=== PATIENT | female | born 1950 | race Caucasian/White ===

== ENCOUNTER 2020-03-06 16:01 | Outpatient (CLI) | payer MEDICARE, OTHER, SELFPAY ==
--- NOTE | 2020-03-06 16:07 | XR_ITS ---
WS: [id number] XR chest 2V* [id number] REASON FOR EXAM: COUGH, DYSPNEA, ANEMIA, FATIGUE FINDINGS: A prominent hiatal hernia is noted. The heart is not enlarged. There is elevation of the right hemidiaphragm similar to previous exam April 22, 2014. There is a granuloma in the mid left chest this is well calcified. There is no pneumonia, pleural effusion, pulmonary edema. XR/XR chest 2V* [id number] IMPRESSION: Prominent hiatal hernia Eventration of the right hemidiaphragm Benign granuloma left mid chest.
== END 2020-03-06 16:02 | disposition home or self-care (01) ==
LOC: RAD 16:03
PROVIDERS: PCP Family Medicine; Visit Provider Family Medicine
DX: D64.9 Anemia, unspecified (principal); R05 Cough; R06.02 Shortness of breath; R53.83 Other fatigue; K44.9 Diaphragmatic hernia without obstruction or gangrene; L92.8 Other granulomatous disorders of the skin and subcutaneous tissue
CPT/HCPCS: 71046

== ENCOUNTER 2020-04-17 10:41 | Outpatient (CLI) | payer MEDICARE, OTHER, SELFPAY ==
--- NOTE | 2020-04-17 10:48 | CT_ITS ---
WS: [id number] CT angio chest PE protcl [id number] REASON FOR EXAM: COUGH/DYSPNEA/WHEEZING TECHNIQUE: Coronal and sagittal 2-D and MIP reformations. IV CONTRAST ADMINISTERED: Omnipaque 350, 95 mL TOTAL EXAM DLP: 565.[address] scans at [facility] use at least one of these dose optimization techniques: automat ed exposure control; mA and/or kV adjustment per patient size (includes targeted exams where dose is matched to clinical indication); or iterative reconstruction. FINDINGS: The pulmonary vessels fill readily after the bolus injection of contrast. There was no definite filling defect to suggest thromboembolic changes. The decreased vascularity is seen in evidence of emphysema this changes are noted. A large hiatal hernia is seen measures 10.94 cm. A calcified granuloma measured 1 6 7 cm is well calcified. There is calcification of the azygos lymph nodes. The aorta was normal as well as the heart chambers. There is no dissection seen of the aorta. The abdomen showed normal appearance of the liver. The adrenal glands were normal. Degenerate changes throughout the thoracic spine are seen. CT/CT angio chest PE protcl [id number] IMPRESSION: Chronic obstructive pulmonary disease. Low probability of pulmonary embolus. Large hiatal hernia. Calcified granuloma left lower lung No evidence of dissection of the aorta.
[2020-04-17 11:48] LABS: Blood Urea Nitrogen 15 mg/dL (8-23)
[2020-04-17] MEDS: iohexol 350 mg/mL 100 mL Btl IV (12:17)
== END 2020-04-17 10:42 | disposition home or self-care (01) ==
LOC: RAD 10:45
PROVIDERS: PCP Family Medicine; Visit Provider Nurse Practitioner Family
DX: R05 Cough (principal); R06.02 Shortness of breath; R06.2 Wheezing; J44.9 Chronic obstructive pulmonary disease, unspecified; K44.9 Diaphragmatic hernia without obstruction or gangrene; J84.10 Pulmonary fibrosis, unspecified
CPT/HCPCS: 36415; 71275; 82565; 84520

== ENCOUNTER 2020-05-04 10:22 | Emergency (ER) | payer MEDICARE, OTHER, SELFPAY ==
[2020-05-04] VITALS (9 sets, daily range): BP systolic 140–153; BP diastolic 84–107; PULSE 65–101; RESP 16–20; TEMP 36.6; O2SAT 94–98; BMI 32.1
--- NOTE | 2020-05-04 10:38 | ED_ITS ---
HPI - Chest Pain General: Chief Complaint: Chest Pain Stated Complaint: CP Time Seen by Provider: 05/04/20 10:33 History of Present Illness: HPI narrative: 70-year-old female comes in complaining of fatigue and dyspnea. This is actually been going on for the last 3 to [address] Tian for it she [place] [facility] [facility] [place] a [place]oma which was not new she also had a large hiatal hernia there is no pulmonary emboli. She had upper respiratory infections in December x2 has been on prednisone antibiotics not recently had a fever at all. she not really had any chest pain but describes a heaviness. She has not had any cardiac work-up. she does have some of the heaviness seeming to radiating to her back. she denies any GI blood loss she denies any pain radiating down into the groin her biggest problem today is she generally feels suddenly very very fatigued. She has continued to have a work-up with Dr. Tian so far they have not had any significant findings to explain her symptoms. MD complaint: chest discomfort Pertinent past history: other (Persistent shortness of breath and fatigue) Onset (ago): month(s) Timing of current episode: episodic and still present Onset: during exertion Pain location: left chest Pain radiation: back Severity: mild Quality: heaviness Associated symptoms: Reports dyspnea; Deny abdominal pain, fever(s), nausea or vomiting Treatment prior to arrival: none Review of Systems Const: Denies: fever(s), chills, body aches, change in appetite, fatigue or malaise ENMT: Denies: throat pain, ear or mastoid pain, nasal discharge or nasal congestion Card: Denies: chest pain, edema, dyspnea on exertion or orthopnea Resp: Reports: dyspnea and wheezing GI: Denies: abdominal pain, nausea, vomiting, hematemesis, coffee ground emesis, diarrhea, constipation, bloating, hematochezia or melena : Denies: flank pain, difficulty voiding, dysuria, urinary frequency or urinary urgency Skin/Breast: Denies: rash or pruritus PFSH ED PFSH: Social History Smoking and tobacco status: never smoked Alcohol intake: never Physical Exam Const: COMMON NORMALS: no acute distress GENERAL APPEARANCE: cooperative and comfortable ORIENTATION/CONSCIOUSNESS: Yes awake, Yes oriented to person, Yes oriented to place and Yes oriented to time HENMT: COMMON NORMALS: normocephalic, atraumatic, hearing grossly normal bilaterally, external ears normal, EAC's normal, TM's normal bilaterally, Normal nasal mucous membranes and turbinates present, moist oral mucous membranes and oropharynx normal HEAD & SCALP: normocephalic and atraumatic NOSE: Normal nasal mucous membranes and turbinates present EXTERNAL EAR: Yes external ears normal EXTERNAL AUDITORY CANAL: EAC's normal TYMPANIC MEMBRANE: TM's normal bilaterally Eye: COMMON NORMALS: Equal, round and reactive pupils present, EOMs intact bilaterally, conjunctivae normal and no scleral icterus CONJUNCTIVA: Yes conjunctivae normal PUPIL: Yes Equal, round and reactive pupils present Neck/C-Spine: COMMON NORMALS: full ROM, no lymphadenopathy, supple and no JVD Lymph: LYMPHATIC: no lymphadenopathy noted and no lymphedema noted Resp: COMMON NORMALS: normal respiratory effort, No retractions and No use of accessory muscles AUSCULTATION: wheezes expiratory wheezes Cardio: COMMON NORMALS: no JVD, regular rate, regular rhythm and No murmurs present (Cardio) RATE: regular rate RHYTHM: regular rhythm GI: COMMON NORMALS: Soft to palpation and No hepatosplenomegaly present AUSCULTATION: Yes normoactive bowel sounds PALPATION: Yes Soft to palpation, No Tenderness to palpation present (GI), No Guarding due to palpation present (GI) and Yes No hepatosplenomegaly present Extremity: COMMON NORMALS: normal to inspection, capillary refill normal, no clubbing, cyanosis or edema, no calf tenderness and no pedal edema Neuro: SENSORIUM/ORIENTATION: Yes oriented to person, Yes oriented to place and Yes oriented to time Skin: COMMON NORMALS: no rashes or lesions noted GENERAL SKIN EXAM: no rashes or lesions noted Course Vital Signs: Vital signs: Vital Signs Temperature 97.9 F 05/04/20 10:34 Pulse Rate 71 05/04/20 14:18 Respiratory Rate 16 05/04/20 14:18 Blood Pressure 140/84 05/04/20 14:18 Pulse Oximetry 95 05/04/20 14:18 MDM - Chest Pain MDM Narrative: Medical decision making narrative: Discussed findings with patient. She does have a large hiatal hernia she does look like she has a left lower lobe pneumonia based on her new symptoms will start on Levaquin. I encouraged her to follow-up with Dr. Tian. Another option would be to see Dr. Blandon at some time and see if he can add anything to evaluating this for her. She is doing well at this time and wishes to go home. Lab Data: Labs: Lab Results 05/04/20 05/04/20 05/04/20 Range/Units 11:09 11:32 11:32 WBC 6.5 (4.0-10.0) 10^3/ uL RBC 4.32 (4.1-5.3) 10^6/u L Hgb 13.5 (11.5-15.3) g/dL Hct 42.1 (37.0-47.0) % MCV 97.5 (81-99) fL MCH 31.3 (28.0-34.0) pg MCHC 32.1 (30.0-36.0) g/dL RDW 13.3 (12.1-15.1) % Plt Count 442 H (130-400) 10^3/c mm MPV 9.3 (7.4-10.4) fL Neut % (Auto) 61.4 % Lymph % (Auto) 23.9 % Campbell % (Auto) 9.0 % Eos % (Auto) 4.0 % Baso % (Auto) 1.2 % Neut # (Auto) 4.0 (1.8-7.7) 10^3/u L Lymph # (Auto) 1.6 (0.8-4.8) 10^3/u L Campbell # (Auto) 0.6 (0.2-0.9) 10^3/u L Eos # (Auto) 0.3 (0.0-0.8) 10^3/u L Baso # (Auto) 0.1 (0.0-0.1) 10^3/u L Nucleated RBC % (a uto) 0 % Nucleated RBCs # 0.0 /100WBC Sodium 140 (136-145) mmol/L Potassium 4.5 (3.5-5.1) mmol/L Chloride 107 (98-107) mmol/L Carbon Dioxide 22 (22-29) mmol/L Anion Gap 15.5 (5-19) BUN 16 (8-23) mg/dL Creatinine 0.7 (0.5-0.9) mg/dL Glucose 100 (65-115) mg/dL Calculated Osmolal ity 286 (285-295) mOsm/k g Calcium 9.9 (8.5-10.5) mg/dL Total Bilirubin 0.4 (0.15-1.2) mg/dL AST 25 (0-32) U/L ALT 22 (0-33) U/L Alkaline Phosphata se 80 (35-105) IU/L Troponin T Baselin e 7 (0-10) ng/L Troponin T 120 Min [place] (0-10) ng/L Delta Troponin T (0-10) ABS# Total Protein 6.5 L (6.6-8.7) g/dL Albumin 4.1 (3.5-5.2) g/dL Globulin 2.4 (1.3-4.6) g/dL 05/04/20 Range/Units 13:10 WBC (4.0-10.0) 10^3/ uL RBC (4.1-5.3) 10^6/u L Hgb (11.5-15.3) g/dL Hct (37.0-47.0) % MCV (81-99) fL MCH (28.0-34.0) pg MCHC (30.0-36.0) g/dL RDW (12.1-15.1) % Plt Count (130-400) 10^3/c mm MPV (7.4-10.4) fL Neut % (Auto) % Lymph % (Auto) % Campbell % (Auto) % Eos % (Auto) % Baso % (Auto) % Neut # (Auto) (1.8-7.7) 10^3/u L Lymph # (Auto) (0.8-4.8) 10^3/u L Campbell # (Auto) (0.2-0.9) 10^3/u L Eos # (Auto) (0.0-0.8) 10^3/u L Baso # (Auto) (0.0-0.1) 10^3/u L Nucleated RBC % (a uto) % Nucleated RBCs # /100WBC Sodium (136-145) mmol/L Potassium (3.5-5.1) mmol/L Chloride (98-107) mmol/L Carbon Dioxide (22-29) mmol/L Anion Gap (5-19) BUN (8-23) mg/dL Creatinine (0.5-0.9) mg/dL Glucose (65-115) mg/dL Calculated Osmolal ity (285-295) mOsm/k g Calcium (8.5-10.5) mg/dL Total Bilirubin (0.15-1.2) mg/dL AST (0-32) U/L ALT (0-33) U/L Alkaline Phosphata se (35-105) IU/L Troponin T Baselin e (0-10) ng/L Troponin T 120 Min [place] 7.70 (0-10) ng/L Delta Troponin T 0.70 (0-10) ABS# Total Protein (6.6-8.7) g/dL Albumin (3.5-5.2) g/dL Globulin (1.3-4.6) g/dL Discharge Plan Discharge Patient Disposition: Home, Self-Care Clinical Impression: Pneumonia Condition: Stable Prescriptions: New Levaquin 750 mg tablet 750 mg PO DAILY 7 Days Qty: 7 RF: 0 No Action lisinopril 20 mg tablet 40 mg PO DAILY RF: 0 omeprazole 40 mg capsule,delayed release(DR/EC) 40 mg PO DAILY RF: 0 amlodipine 10 mg tablet 10 mg PO DAILY RF: 0 Anoro Ellipta 62.5-25 mcg/actuation Blister With Device 1 inh INHALATION DAILY RF: 0 Discharge Orders: Discharge Order (Routine); Ordered 05/04/20 Ordered By: Shivam Boss Referrals: Alfonzo Hays DO [Primary Care Provider] - Discharge Diet: Advance as tolerated Discharge Activity: Resume usual activity Activity Restrictions/Additional Instructions: Follow-up with your primary care doctor in the next week. Discharge Date/Time: 05/04/20 14:46 Coding Level of Care Code ED Mending Carrier for Chg Fwd Exam Comprehensive
--- NOTE | 2020-05-04 10:39 | XRR_ITS ---
PROCEDURE INFORMATION: Exam: XR Chest, 1 View Exam date and time: 05/04/2020 10:41 AM Age: 70 years old Clinical indication: Chest pain TECHNIQUE: Imaging protocol: XR of the chest Views: 1 view. COMPARISON: CR XR chest 2V* [id number] 03/06/2020 4:24 PM FINDINGS: Lungs: Poor inspiration. Decreased lung volumes. Nonspecific left basilar airspace disease. This could be due to pneumonia or atelectasis. Left mid lung zone calcified granuloma. Pleural space: No pleural effusion or pneumothorax. Heart/Mediastinum: Moderate to large size hiatal hernia. The cardiac silhouette is not enlarged. Diaphragm: The right hemidiaphragm is elevated, present before. Bones/joints: No acute osseous abnormality. XR/XR chest 1V portable [id number] IMPRESSION: Left basilar pneumonia versus atelectasis.
[2020-05-04 11:18] LABS: Basophils # 0.1 10^3/uL (0.0-0.1); Basophils % 1.2 %; Eosinophils # 0.3 10^3/uL (0.0-0.8); Hematocrit 42.1 % (37.0-47.0); Hemoglobin 13.5 g/dL (11.5-15.3); Lymphocytes # 1.6 10^3/uL (0.8-4.8); Lymphocytes % 23.9 %; Mean Corpuscular HGB Conc 32.1 g/dL (30.0-36.0); Mean Corpuscular Hemoglobin 31.3 pg (28.0-34.0); Mean Corpuscular Volume 97.5 fL (81-99); Mean Platelet Volume 9.3 fL (7.4-10.4); Monocytes # 0.6 10^3/uL (0.2-0.9); Neutrophils % 61.4 %; Nucleated Red Blood Cells % 0 %; Platelet Count 442 10^3/cmm (130-400); Red Blood Count 4.32 10^6/uL (4.1-5.3); Red Cell Distribution Width 13.3 % (12.1-15.1); White Blood Count 6.5 10^3/uL (4.0-10.0)
[2020-05-04 11:59] LABS: Alanine Aminotransferase 22 U/L (0-33); Albumin Level 4.1 g/dL (3.5-5.2); Alkaline Phosphatase 80 IU/L (35-105); Anion Gap 15.5 (5-19); Aspartate Amino Transferase 25 U/L (0-32); Blood Urea Nitrogen 16 mg/dL (8-23); Calcium 9.9 mg/dL (8.5-10.5); Carbon Dioxide 22 mmol/L (22-29); Chloride 107 mmol/L (98-107); Globulin 2.4 g/dL (1.3-4.6); Glucose 100 mg/dL (65-115); Osmolality Calculated 286 mOsm/kg (285-295); Potassium 4.5 mmol/L (3.5-5.1); Sodium 140 mmol/L (136-145); Total Bilirubin 0.4 mg/dL (0.15-1.2); Total Protein 6.5 g/dL (6.6-8.7)
[2020-05-04 12:04] LABS: Troponin(5th) Baseline 7 ng/L (0-10)
--- NOTE | 2020-05-04 12:05 | PC.NURSE ---
XR performed at bedside
--- NOTE | 2020-05-04 12:39 | ECG_ITS ---
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 Measurements Intervals [place] Rate: 65 P: 36 SC: 158 QRS: -9 QRSD: 88 T: 35 QT: 393 QTc: 409 Interpretive Statements SINUS RHYTHM WITH SINUS ARRHYTHMIA POSSIBLE RIGHT VENTRICULAR CONDUCTION DELAY [RSR (QR) IN V1/V2] NONSPECIFIC T-WAVE ABNORMALITY INTERPRETATION BASED ON A DEFAULT AGE OF 40 YEARS Compared to ECG 05/04/2020 10:46:06 T-wave abnormality now present Myocardial infarct finding no longer present Electronically Signed On 05-04-2020 14:10:18 CDT by Chago Koehler M.D. [id number]
--- NOTE | 2020-05-04 12:44 | PC.NURSE ---
Pt provided with water per request, denied need for blanket. RT at bedside to do 2nd EKG. Call light in reach.
--- NOTE | 2020-05-04 13:11 | PC.NURSE ---
2nd troponin drawn by lab
--- NOTE | 2020-05-04 13:45 | PC.NURSE ---
Pt provided with warm blanket
--- NOTE | 2020-05-04 14:41 | PC.NURSE ---
Pt ambulated to and from the bathroom with no assist and no noted dyspnea
--- NOTE | 2020-05-04 16:39 | ECG_ITS ---
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 Measurements Intervals [place] Rate: 77 P: 16 WI: 145 QRS: -18 QRSD: 84 T: 52 QT: 382 QTc: 433 Interpretive Statements SINUS RHYTHM SEPTAL MYOCARDIAL INFARCTION [40+ ms Q WAVE IN V1/V2], OF INDETERMINATE AGE INFERIOR MYOCARDIAL INFARCTION [40+ ms Q WAVE AND/OR ST/T ABNORMALITY IN II/aVF], PROBABLY OLD No previous ECG available for comparison Electronically Signed On 05-04-2020 14:09:45 CDT by Chago Koehler M.D. [email or web address]
== END 2020-05-04 14:46 | disposition home or self-care (01) ==
PROVIDERS: Emergency Provider Family Medicine; PCP Family Medicine
DX: J18.9 Pneumonia, unspecified organism (principal)
CPT/HCPCS: 12345; 36415; 71045; 80053; 84484; 85025; 93005; 99283

== ENCOUNTER → 2020-06-07 10:53 | Outpatient (BNVA) | payer MEDICARE, OTHER, SELFPAY | PROVIDERS: PCP Family Medicine; Visit Provider Internal Medicine | DX: R05 Cough (principal) | CPT/HCPCS: 87635 ==

== ENCOUNTER 2020-06-12 09:40 | Outpatient (CLI) | payer MEDICARE, OTHER, SELFPAY ==
--- NOTE | 2020-06-12 09:30 | USCV_ITS ---
Jane Zheng Age: 70 Gender: F : 1950 Exam Date: 06/12/2020 10:04 Ordering Phys: Isauro Viera MD Technologist: Damon Mcwilliams Exam Location: [facility] – [place] Indication: SOB BP: 125 / 78 HR: 70 Rhythm: Sinus Technical Quality: Fair MEASUREMENTS (Male / Female) Normal Values 2D ECHO LV Diastolic Diameter PLAX 4.1 cm 4.2 - 5.9 / 3.9 - 5.3 cm LV Systolic Diameter PLAX 2.5 cm IVS Diastolic Thickness 1.6 cm 0.6 - 1.0 / 0.6 - 0.9 cm IVS Systolic Thickness 1.6 cm LVPW Diastolic Thickness 1.3 cm 0.6 - 1.0 / 0.6 - 0.9 cm LVPW Systolic Thickness 1.5 cm LVOT Diameter 2.0 cm LV Ejection Fraction 2D Teich 69.4 % LV Ejection Fraction MOD 2C 45.8 % LV Ejection Fraction 2C AL 46.3 % LA Diameter 4.2 cm LA Width 3.9 cm LA Height 5.9 cm RA Width 3.8 cm RA Height 3.8 cm Aorta at Sinotubular Diameter 1.1 cm M-MODE LV Diastolic Diameter MM 4.6 cm 4.2 - 5.9 / 3.9 - 5.3 cm LV Systolic Diameter MM 2.9 cm LV Ejection Fraction MM Teich 66.5 % IVS Diastolic Thickness MM 0.9 cm 0.6 - 1.0 / 0.6 - 0.9 cm IVS Systolic Thickness MM 1.5 cm LVPW Diastolic Thickness MM 1.3 cm 0.6 - 1.0 / 0.6 - 0.9 cm LVPW Systolic Thickness MM 1.7 cm RV Diastolic Diameter MM 2.8 cm Aortic Annulus Diameter 3.4 cm LA Ao Ratio MM 1.2 MV E Point Septal Separation 1.3 cm DOPPLER AV Peak Velocity 126.0 cm/s LVOT Peak Velocity 95.0 cm/s AV Area Cont Eq vti 3.1 cm squared AV Area Cont Eq pk 2.5 cm squared MV Area PHT 5.0 cm squared Mitral E to A Ratio 0.6 MV E' Velocity 8.0 cm/s Mitral E to MV E' Ratio 8.9 Mitral E to LV E' Lateral Ratio 7.1 Mitral E to LV E' Septal Ratio 12.3 TR Peak Velocity 140.0 cm/s TR Peak Gradient 7.8 mmHg TV Peak E Velocity 58.0 cm/s Right Atrial Pressure 3.0 mmHg Pulmonary Artery Systolic Pressu 10.8 mmHg FINDINGS Left Ventricle Normal left ventricular size, systolic function and wall thickness, with no regional wall motion abnormalities. Left ventricular ejection fraction is estimated at 55 %. Grade I diastolic dysfunction (abnormal relaxation filling pattern), normal to mildly elevated filling pressures. Right Ventricle Normal right ventricular size and systolic function. Right ventricular systolic pressure 10.8 mmHg. Right Atrium Normal right atrial size. Left Atrium Moderately increased left atrial size. Mitral Valve Mildly thickened mitral valve. No mitral valve stenosis. Trace mitral valve regurgitation. Aortic Valve Aortic valve not well visualized. No aortic valve stenosis. Trace aortic valve regurgitation. Tricuspid Valve Tricuspid valve not well visualized. Structurally normal tricuspid valve. Pulmonic Valve Pulmonic valve not well visualized. Pericardium No pericardial effusion. Aorta Normal size aortic root and proximal ascending aorta. CONCLUSIONS 1. Normal left ventricular size, systolic function and wall thickness, with no regional wall motion abnormalities. Left ventricular ejection fraction is estimated at 55 %. Grade I diastolic dysfunction (abnormal relaxation filling pattern), normal to mildly elevated filling pressures. 2. Normal right ventricular size and systolic function. 3. Moderately increased left atrial size. 4. Trace aortic valve regurgitation. 5. No prior similar studies to compare. Brittni Young MD (Electronically Signed) Final Date: 14 June 2020 14:32 S
--- NOTE | 2020-06-12 10:09 | PFTS_ITS ---
Date of Study:07/24/20 Date of Dictation: MECHANICS: Forced vital capacity (FVC) is normal. Forced expiratory volume in one second (FEV1) is normal. FEV1/FVC is normal. FLOW VOLUME LOOP: Mild scooping. LUNG VOLUMES: Total lung capacity (TLC) is normal. Residual volume (RV) is normal. DIFFUSING CAPACITY FOR CARBON MONOXIDE: Moderately reduced. INTERPRETATION: The prebronchodilator spirometry is consistent with mild restriction. The postbronchodilator spirometry normalizes with a significant postbronchodilator response in FEV1. Lung volumes are normal. Gas exchange (DLCO) is moderately reduced. MTDD
== END 2020-06-12 09:41 | disposition home or self-care (01) ==
LOC: RAD 09:44
PROVIDERS: PCP Family Medicine; Visit Provider Internal Medicine Pulmonary Disease
DX: R06.02 Shortness of breath (principal); K21.9 Gastro-esophageal reflux disease without esophagitis; R05 Cough; I35.1 Nonrheumatic aortic (valve) insufficiency
CPT/HCPCS: 93306; 94060; 94726; 94729; J7611

== ENCOUNTER 2020-08-01 15:42 | Outpatient (CLI) | payer MEDICARE, OTHER, SELFPAY ==
[2020-08-01 16:21] LABS: Basophils # 0.1 10^3/uL (0.0-0.1); Basophils % 0.8 %; Eosinophils # 0.2 10^3/uL (0.0-0.8); Eosinophils % 1.7 %; Hematocrit 40.6 % (37.0-47.0); Hemoglobin 12.8 g/dL (11.5-15.3); Lymphocytes # 2.1 10^3/uL (0.8-4.8); Lymphocytes % 23.4 %; Mean Corpuscular HGB Conc 31.5 g/dL (30.0-36.0); Mean Corpuscular Volume 95.1 fL (81-99); Mean Platelet Volume 9.5 fL (7.4-10.4); Monocytes # 0.8 10^3/uL (0.2-0.9); Monocytes % 9.5 %; Neutrophils % 64.3 %; Nucleated Red Blood Cells % 0 %; Platelet Count 433 10^3/cmm (130-400); Red Blood Count 4.27 10^6/uL (4.1-5.3); White Blood Count 8.9 10^3/uL (4.0-10.0)
[2020-08-05 18:51] LABS: Alternaria Alternata (M6) Ige <0.10 kU/L; Alternaria Class 0; Bermuda Class 0; Bermuda Grass (G2) Ige <0.10 kU/L; Cat Dander (E1) Ige <0.10 kU/L; Cat Dander Class 0; Common Ragweed (Short) (W1) Ig <0.10 kU/L; D. Farinae Class 0; Dermatophagoides Class 0; Dermatophagoides Farinae (D2) <0.10 kU/L; Dermatophagoides Pteronyssinus <0.10 kU/L; Dog Dander (E5) Ige <0.10 kU/L; Dog Dander Class 0; Elm (T8) Ige <0.10 kU/L; Elm Class 0; English Plantain (W9) Ige <0.10 kU/L; English Plantain Class 0; House Dust (Greer) (H1) Ige <0.10 kU/L; House Dust (Hollister- Stier) <0.10 kU/L; House Dust Class 0; Immunoglobulin E 61 kU/L (<OR=114); Immunoglobulin E 65 kU/L (<OR=114); Johnson Grass (G10) Ige <0.10 kU/L; Johnson Grass Cl 0; June Grass Class 0; June Grass(Kentucky Blue) (G8) <0.10 kU/L; Lamb'S Quarters (Goose Foot) <0.10 kU/L; Lamb'S Quarters Class 0; Maple (Box Elder) (T1) Ige <0.10 kU/L; Maple Class 0; Meadow Fescue (G4) Ige <0.10 kU/L; Meadow Fescue Class 0; Mucor Racemosus Class 0; Oak (T7) Ige <0.10 kU/L; Oak Class 0; Orchard Grass (Cocksfoot) (G3) <0.10 kU/L; Penicillium Class 0; Penicillium Notatum (M1) Ige <0.10 kU/L; Perennial Rye Grass (G5) Ige <0.10 kU/L; Perennial Rye Grass Class 0; Ragweeed Class 0; Rough Marsh Elder (W16) Ige <0.10 kU/L; Rough Marsh Elder Class 0; Sweet Vernal Class 0; Sweet Vernal Grass (G1) Ige <0.10 kU/L; Timothy Grass (G6) Ige <0.10 kU/L; Timothy Grass Class 0
[2020-08-05 20:52] LABS: Aspergillus Fumigatus, Igg Ab, 18.4 mg/L (<=102)
== END 2020-08-01 15:43 | disposition home or self-care (01) ==
PROVIDERS: PCP Family Medicine; Visit Provider Internal Medicine Pulmonary Disease
DX: R06.02 Shortness of breath (principal)
CPT/HCPCS: 82785; 85025; 86003

== ENCOUNTER 2020-12-10 11:14 | Outpatient (CLI) | payer MEDICARE, OTHER, SELFPAY ==
--- NOTE | 2020-12-10 11:18 | MM_ITS ---
WS: [id number] BILATERAL DIGITAL SCREENING MAMMOGRAPHY WITH CAD CLINICAL INFORMATION: SCREENING HISTORY: Screening mammogram. No current complaints. COMPARISON: TECHNIQUE: Bilateral CC and MLO views. FINDINGS: Scattered fibroglandular densities bilaterally. No suspicious focal mass, asymmetry, calcifications, or architectural distortion. No evidence of malignancy. A few stable intramammary lymph nodes. MM/[place] [id number] IMPRESSION: BI-RADS: 2-Benign FOLLOW UP: 1 Year Follow-up Recommend return to annual screening mammography.
== END 2020-12-10 11:15 | disposition home or self-care (01) ==
LOC: RADSHAW 11:17
PROVIDERS: PCP Family Medicine; Visit Provider Family Medicine
DX: Z12.31 Encounter for screening mammogram for malignant neoplasm of breast (principal)
CPT/HCPCS: 77067

== ENCOUNTER → 2020-12-25 14:37 | Outpatient (BNVA) | payer MEDICARE, OTHER, SELFPAY | PROVIDERS: PCP Family Medicine; Visit Provider Obstetrics & Gynecology | DX: N90.7 Vulvar cyst (principal) | CPT/HCPCS: 88305 ==

== ENCOUNTER 2021-03-19 14:45 | Outpatient (CLI) | payer MEDICARE, OTHER, SELFPAY ==
--- NOTE | 2021-03-19 14:52 | XR_ITS ---
WS: [id number] Chest 2 views, 03/19/2021 Clinical Data: COPD Comparison: Portable chest, 05/04/2020. Findings: No nodules, masses or effusions are seen. The heart is normal. The pulmonary vascularity is not increased. No pneumonia or pneumothorax is seen. The right diaphragm is elevated. There is a hia daniel hernia behind the heart. The aortic arch and descending aorta are tortuous. XR/XR chest 2V* [id number] Impression: Atherosclerosis and hiatal hernia.
== END 2021-03-19 14:46 | disposition home or self-care (01) ==
LOC: RAD 14:50
PROVIDERS: PCP Family Medicine; Visit Provider Family Medicine
DX: J44.9 Chronic obstructive pulmonary disease, unspecified (principal); R05 Cough; R06.02 Shortness of breath; E53.8 Deficiency of other specified B group vitamins; I70.90 Unspecified atherosclerosis; K44.9 Diaphragmatic hernia without obstruction or gangrene
CPT/HCPCS: 71046

== ENCOUNTER 2021-04-15 16:31 | Emergency (ER) | payer MEDICARE, OTHER, SELFPAY ==
[2021-04-15] VITALS (7 sets, daily range): BP systolic 122–152; BP diastolic 87–104; PULSE 74–95; RESP 16–22; TEMP 36.7; O2SAT 90–96; BMI 32.4
--- NOTE | 2021-04-15 17:12 | XRR_ITS ---
PROCEDURE INFORMATION: Exam: XR Chest Exam date and time: 04/15/2021 5:12 PM Age: 71 years old Clinical indication: Shortness of breath and other: Weakness TECHNIQUE: Imaging protocol: XR of the chest. Views: 1 view. COMPARISON: CR XR chest 2V* [id number] 03/19/2021 2:58 PM FINDINGS: Lungs: Unremarkable. No consolidation. Pleural spaces: Unremarkable. No pleural effusion. No pneumothorax. Heart/Mediastinum: Unremarkable. No cardiomegaly. Bones/joints: Unremarkable. XR/XR chest 1V portable [id number] IMPRESSION: No acute findings.
--- NOTE | 2021-04-15 17:45 | W.ED.WEAKNES ---
Documented by User: Shivam Boss DO 04/17/21 07:09 HPI - Weakness General: Chief complaint: Weakness Stated complaint: WEAKNESS Time Seen by Provider: 04/15/21 17:33 History of Present Illness: HPI Narrative: 71-year-old female presents emergency room complaining of generalized weakness for the last several days. She states she has had difficulty for the last 2 months she states she started off with some bronchitis and early May progressively had decreased energy and weakness increasing shortness of breath the day is actually having some chest pain. She is not previously had Covid but did receive both of her vaccinations her second 1 was a couple of months ago. She denies any fever sweats or chills she does have a history of chronic respiratory disease COPD for which she is on Symbicort. She is not diabetic but does have a history of hypertension. Complaint: generalized weakness Onset (ago): week(s) Duration: constant and progressively worsening Location: generalized Severity: mild Relieving factors: none Exacerbating factors: none Associated symptoms: Reports decreased appetite, myalgias and short of breath; Denies chest pain, chills, confusion, melena, diaphoresis, dysuria, easy bruising, fever(s), headache(s), nausea, rash, syncope or vomiting Review of Systems Const: Denies: fever(s), chills or diaphoresis ENMT: Denies: throat pain, ear or mastoid pain, nasal discharge or nasal congestion Card: Denies: chest pain or syncope Resp: Denies: dyspnea, productive cough or non-productive cough GI: Denies: nausea, vomiting or melena : Denies: dysuria Skin/Breast: Denies: rash or pruritus Neuro: Denies: headache(s) or confusion Edmund/Lymph: Denies: easy bruising PFS ED PFSH: Medical History GERD (gastroesophageal reflux disease) Controlled with medication-states that she has not had an EGD before. HTN (hypertension) Diagnosed in the nineteen nineties managed by medication and her primary care provider. 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 No pertinent past medical history Denies diabetes, asthma, seizures, DVT/PE PCP: Dr. Hays Surgical History Status post delivery 1985- delivery x1. Family History Father Hypertension Mother Breast cancer Diagnosed at age 50, of same at age 58 Denies family history of Colon cancer Ovarian cancer Diabetes Heart disease Hyperlipidemia Uterine cancer Thyroid condition Stroke Social History Smoking and tobacco status: never smoked Second hand smoke exposure: No Smoking risk assessment/counseling performed?: Yes Alcohol intake: never Lives independently: Yes Household members: spouse Housing: House Marital status: Current occupational status: retired Pets and animals: Yes History of recent travel: No Current gender identity: Female Physical Exam Const: COMMON NORMALS: no acute distress GENERAL APPEARANCE: cooperative and comfortable ORIENTATION/CONSCIOUSNESS: Yes awake, Yes oriented to person, Yes oriented to place and Yes oriented to time HENMT: COMMON NORMALS: normocephalic, atraumatic, hearing grossly normal bilaterally and external ears normal HEAD & SCALP: normocephalic and atraumatic EXTERNAL EAR: Yes external ears normal Eye: COMMON NORMALS: Equal, round and reactive pupils present, EOMs intact bilaterally, conjunctivae normal and no scleral icterus CONJUNCTIVA: Yes conjunctivae normal PUPIL: Yes Equal, round and reactive pupils present Neck/C-Spine: COMMON NORMALS: full ROM, no lymphadenopathy, supple and no JVD Lymph: LYMPHATIC: no lymphadenopathy noted and no lymphedema noted Resp: AUSCULTATION: wheezes Cardio: COMMON NORMALS: no JVD, regular rate, regular rhythm and No murmurs present (Cardio) RATE: regular rate RHYTHM: regular rhythm GI: COMMON NORMALS: Soft to palpation and No hepatosplenomegaly present AUSCULTATION: Yes normoactive bowel sounds PALPATION: Yes Soft to palpation, No Tenderness to palpation present (GI), No Guarding due to palpation present (GI) and Yes No hepatosplenomegaly present Extremity: COMMON NORMALS: normal to inspection, capillary refill normal, no clubbing, cyanosis or edema, no calf tenderness and no pedal edema Neuro: SENSORIUM/ORIENTATION: Yes oriented to person, Yes oriented to place and Yes oriented to time Skin: COMMON NORMALS: no rashes or lesions noted GENERAL SKIN EXAM: no rashes or lesions noted Course Vital Signs: Vital signs: Vital Signs Temperature 98.0 F 04/15/21 16:48 Pulse Rate 95 04/15/21 21:18 Respiratory Rate 20 H 04/15/21 21:18 Blood Pressure 152/90 04/15/21 21:18 Pulse Oximetry 96 04/15/21 21:18 MDM - Weakness MDM Narrative: Medical decision making narrative: Care turned over to Dr. Irwin at change of shift see his notes for final diagnosis and disposition Lab Data: Labs: Lab Results 04/15/21 04/15/21 04/15/21 Range/Units 17:48 17:55 17:55 WBC 7.8 (4.0-10.0) 10^3/ uL RBC 4.12 (4.1-5.3) 10^6/u L Hgb 12.4 (11.5-15.3) g/dL Hct 39.4 (37.0-47.0) % MCV 95.6 (81-99) fL MCH 30.1 (28.0-34.0) pg MCHC 31.5 (30.0-36.0) g/dL RDW 15.8 H (12.1-15.1) % Plt Count 442 H (130-400) 10^3/c mm MPV 8.6 (7.4-10.4) fL Neut % (Auto) 62.4 % Lymph % (Auto) 26.3 % Burnett % (Auto) 9.3 % Eos % (Auto) 1.0 % Baso % (Auto) 0.5 % Neut # (Auto) 4.87 (1.8-7.7) 10^3/u L Lymph # (Auto) 2.1 (0.8-4.8) 10^3/u L Burnett # (Auto) 0.7 (0.2-0.9) 10^3/u L Eos # (Auto) 0.1 (0.0-0.8) 10^3/u L Baso # (Auto) 0.0 (0.0-0.1) 10^3/u L Nucleated RBC % (a uto) 0 % Nucleated RBCs # 0.0 /100WBC D-Dimer (0-0.59) ug/mIFE U Sodium 141 (136-145) mmol/L Potassium 4.3 (3.5-5.1) mmol/L Chloride 106 (98-107) mmol/L Carbon Dioxide 25 (22-29) mmol/L Anion Gap 14.3 (5-19) BUN 18 (8-23) mg/dL Creatinine 0.9 (0.5-0.9) mg/dL GFR Calculation Not Reportable Glucose 88 (65-115) mg/dL Calculated Osmolal ity 293 (285-295) mOsm/k g Calcium 9.3 (8.5-10.5) mg/dL Total Bilirubin 0.2 (0.15-1.2) mg/dL AST 30 (0-32) U/L ALT 27 (0-33) U/L Alkaline Phosphata se 75 (35-105) IU/L Total Protein 6.8 (6.6-8.7) g/dL Albumin 4.4 (3.5-5.2) g/dL Globulin 2.4 (1.3-4.6) g/dL Urine Color Dark yellow (Yellow) Urine Appearance Sl hazy (CLEAR) Urine pH 5 (5-7) Ur Specific Gravit y 1.025 (1.005-1.030) Urine Protein Trace (Negative) Urine Glucose (UA) Norm (Normal) Urine Ketones 1+ H (Negative) Urine Blood Neg (Negative) Urine Nitrate Negative (Negative) Urine Bilirubin 1+ H (Negative) Urine Urobilinogen 4 H (Negative) mg/dL Ur Leukocyte Carmita ase Negative (Negative) Urine RBC 0-4 H (0-2) /hpf Urine WBC 0-4 H (0-5) /hpf Ur Squamous Epith Cells 0-4 H (0-5) /hpf Calcium Oxalate Cr ystal 0-4 H /hpf Amorphous Sediment Not Reportable Urine Bacteria 1+ H (NONE) /hpf Hyaline Casts 5-10 H /lpf 04/15/21 Range/Units 18:30 WBC (4.0-10.0) 10^3/ uL RBC (4.1-5.3) 10^6/u L Hgb (11.5-15.3) g/dL Hct (37.0-47.0) % MCV (81-99) fL MCH (28.0-34.0) pg MCHC (30.0-36.0) g/dL RDW (12.1-15.1) % Plt Count (130-400) 10^3/c mm MPV (7.4-10.4) fL Neut % (Auto) % Lymph % (Auto) % Burnett % (Auto) % Eos % (Auto) % Baso % (Auto) % Neut # (Auto) (1.8-7.7) 10^3/u L Lymph # (Auto) (0.8-4.8) 10^3/u L Burnett # (Auto) (0.2-0.9) 10^3/u L Eos # (Auto) (0.0-0.8) 10^3/u L Baso # (Auto) (0.0-0.1) 10^3/u L Nucleated RBC % (a uto) % Nucleated RBCs # /100WBC D-Dimer 0.48 (0-0.59) ug/mIFE U Sodium (136-145) mmol/L Potassium (3.5-5.1) mmol/L Chloride (98-107) mmol/L Carbon Dioxide (22-29) mmol/L Anion Gap (5-19) BUN (8-23) mg/dL Creatinine (0.5-0.9) mg/dL GFR Calculation Glucose (65-115) mg/dL Calculated Osmolal ity (285-295) mOsm/k g Calcium (8.5-10.5) mg/dL Total Bilirubin (0.15-1.2) mg/dL AST (0-32) U/L ALT (0-33) U/L Alkaline Phosphata se (35-105) IU/L Total Protein (6.6-8.7) g/dL Albumin (3.5-5.2) g/dL Globulin (1.3-4.6) g/dL Urine Color (Yellow) Urine Appearance (CLEAR) Urine pH (5-7) Ur Specific Gravit y (1.005-1.030) Urine Protein (Negative) Urine Glucose (UA) (Normal) Urine Ketones (Negative) Urine Blood (Negative) Urine Nitrate (Negative) Urine Bilirubin (Negative) Urine Urobilinogen (Negative) mg/dL Ur Leukocyte Carmita ase (Negative) Urine RBC (0-2) /hpf Urine WBC (0-5) /hpf Ur Squamous Epith Cells (0-5) /hpf Calcium Oxalate Cr ystal /hpf Amorphous Sediment Urine Bacteria (NONE) /hpf Hyaline Casts /lpf Discharge Plan Discharge Patient Disposition: Home Clinical Impression: Chronic obstructive pulmonary disease, LEE (dyspnea on exertion) Condition: Stable Prescriptions: New albuterol sulfate 90 mcg/actuation HFA aerosol inhaler 2 puff inhalation Q4H PRN (Reason: shortness of breath or wheezing) Qty: 8.5 RF: 0 Medrol (Carl) 4 mg tablets,dose pack See Rx Instructions .ROUTE .COMPLEX Qty: 21 RF: 0 azithromycin 250 mg tablet 250 mg PO DAILY 6 Days RF: 0 No Action amlodipine 10 mg tablet 10 mg PO DAILY@1000 RF: 0 omeprazole 40 mg capsule,delayed release(DR/EC) 40 mg PO DAILY@1000 RF: 0 budesonide-formoterol [Symbicort] 80-4.5 mcg/actuation HFA aerosol inhaler 2 puff INHALATION BID RF: 0 fluoxetine 20 mg capsule 20 mg PO DAILY@1000 RF: 0 escitalopram oxalate 10 mg tablet 10 mg PO DAILY@1000 RF: 0 losartan 25 mg tablet 25 mg PO DAILY@1000 RF: 0 Discharge Orders: Discharge ED (Routine); Ordered 04/15/21 Ordered By: Collin Irwin Referrals: Alfonzo Hays DO [Primary Care Provider] - Discharge Diet: Advance as tolerated Discharge Activity: Resume usual activity Patient Instructions: Opioid Safety Activity Restrictions/Additional Instructions: Follow-up with your primary care physician may need referral to pulmonology. He should be set up for outpatient pulmonary function testing. Take medications as prescribed. Carry your rescue inhaler in your pocket and use when needed. Follow-up with PCP in 2 to 3 days. Coding Level of Care Code ED Regional Administrative Assistant for Chg Fwd Exam Comprehensive Documented by User: Collin Irwin MD 04/15/21 20:17 HPI - Weakness General: Chief complaint: Weakness Stated complaint: WEAKNESS Time Seen by Provider: 04/15/21 17:33 PFSH ED PFSH: Medical History GERD (gastroesophageal reflux disease) Controlled with medication-states that she has not had an EGD before. HTN (hypertension) Diagnosed in the nineteen nineties managed by medication and her primary care provider. 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 No pertinent past medical history Denies diabetes, asthma, seizures, DVT/PE PCP: Dr. Hays Surgical History Status post delivery 1986- delivery x1. Family History Father Hypertension Mother Breast cancer Diagnosed at age 50, of same at age 58 Denies family history of Colon cancer Ovarian cancer Diabetes Heart disease Hyperlipidemia Uterine cancer Thyroid condition Stroke Social History Smoking and tobacco status: never smoked Second hand smoke exposure: No Smoking risk assessment/counseling performed?: Yes Alcohol intake: never Lives independently: Yes Household members: spouse Housing: House Marital status: Current occupational status: retired Pets and animals: Yes History of recent travel: No Current gender identity: Female Course Reevaluation(s): Reevaluation #1: Patient stable. Pulse ox on room air is 97%. Patient blood pressure 134/97 heart rate of 85. We will have respiratory ambulate patient around the emergency department with continuous pulse ox to monitor for any abnormal readings. We will continue to monitor patient. Time: 19:56 Reevaluation #2: Patient ambulates in the emergency department that any acute deficits in pulse ox. Patient did become little wheezy. Patient needs to have pulmonary function testing as an outpatient. Patient admits that she does not take her rescue inhaler often at home. Patient will be discharged home patient is to follow-up with pulmonology. May need to be referred by PCP. Patient states understanding she is discharged home Time: 20:14 Vital Signs: Vital signs: Vital Signs Temperature 98.0 F 04/15/21 16:48 Pulse Rate 95 04/15/21 21:18 Respiratory Rate 20 H 04/15/21 21:18 Blood Pressure 152/90 04/15/21 21:18 Pulse Oximetry 96 04/15/21 21:18 MDM - Weakness MDM Narrative: Medical decision making narrative: 71-year-old female presents emergency room complaining of generalized weakness for the last several days. She states she has had difficulty for the last 2 months she states she started off with some bronchitis and early May progressively had decreased energy and weakness increasing shortness of breath the day is actually having some chest pain. She is not previously had Covid but did receive both of her vaccinations her second 1 was a couple of months ago. She denies any fever sweats or chills she does have a history of chronic respiratory disease COPD for which she is on Symbicort. She is not diabetic but does have a history of hypertension. Patient ambulates in the emergency department that any acute deficits in pulse ox. Patient did become little wheezy. Patient needs to have pulmonary function testing as an outpatient. Patient admits that she does not take her rescue inhaler often at home. Patient will be discharged home patient is to follow-up with pulmonology. May need to be referred by PCP. Patient states understanding she is discharged home Lab Data: Labs: Lab Results 04/15/21 04/15/21 04/15/21 Range/Units 17:48 17:55 17:55 WBC 7.8 (4.0-10.0) 10^3/ uL RBC 4.12 (4.1-5.3) 10^6/u L Hgb 12.4 (11.5-15.3) g/dL Hct 39.4 (37.0-47.0) % MCV 95.6 (81-99) fL MCH 30.1 (28.0-34.0) pg MCHC 31.5 (30.0-36.0) g/dL RDW 15.8 H (12.1-15.1) % Plt Count 442 H (130-400) 10^3/c mm MPV 8.6 (7.4-10.4) fL Neut % (Auto) 62.4 % Lymph % (Auto) 26.3 % Burnett % (Auto) 9.3 % Eos % (Auto) 1.0 % Baso % (Auto) 0.5 % Neut # (Auto) 4.87 (1.8-7.7) 10^3/u L Lymph # (Auto) 2.1 (0.8-4.8) 10^3/u L Burnett # (Auto) 0.7 (0.2-0.9) 10^3/u L Eos # (Auto) 0.1 (0.0-0.8) 10^3/u L Baso # (Auto) 0.0 (0.0-0.1) 10^3/u L Nucleated RBC % (a uto) 0 % Nucleated RBCs # 0.0 /100WBC D-Dimer (0-0.59) ug/mIFE U Sodium 141 (136-145) mmol/L Potassium 4.3 (3.5-5.1) mmol/L Chloride 106 (98-107) mmol/L Carbon Dioxide 25 (22-29) mmol/L Anion Gap 14.3 (5-19) BUN 18 (8-23) mg/dL Creatinine 0.9 (0.5-0.9) mg/dL GFR Calculation Not Reportable Glucose 88 (65-115) mg/dL Calculated Osmolal ity 293 (285-295) mOsm/k g Calcium 9.3 (8.5-10.5) mg/dL Total Bilirubin 0.2 (0.15-1.2) mg/dL AST 30 (0-32) U/L ALT 27 (0-33) U/L Alkaline Phosphata se 75 (35-105) IU/L Total Protein 6.8 (6.6-8.7) g/dL Albumin 4.4 (3.5-5.2) g/dL Globulin 2.4 (1.3-4.6) g/dL Urine Color Dark yellow (Yellow) Urine Appearance Sl hazy (CLEAR) Urine pH 5 (5-7) Ur Specific Gravit y 1.025 (1.005-1.030) Urine Protein Trace (Negative) Urine Glucose (UA) Norm (Normal) Urine Ketones 1+ H (Negative) Urine Blood Neg (Negative) Urine Nitrate Negative (Negative) Urine Bilirubin 1+ H (Negative) Urine Urobilinogen 4 H (Negative) mg/dL Ur Leukocyte Carmita ase Negative (Negative) Urine RBC 0-4 H (0-2) /hpf Urine WBC 0-4 H (0-5) /hpf Ur Squamous Epith Cells 0-4 H (0-5) /hpf Calcium Oxalate Cr ystal 0-4 H /hpf Amorphous Sediment Not Reportable Urine Bacteria 1+ H (NONE) /hpf Hyaline Casts 5-10 H /lpf 06/15/21 Range/Units 18:30 WBC (4.0-10.0) 10^3/ uL RBC (4.1-5.3) 10^6/u L Hgb (11.5-15.3) g/dL Hct (37.0-47.0) % MCV (81-99) fL MCH (28.0-34.0) pg MCHC (30.0-36.0) g/dL RDW (12.1-15.1) % Plt Count (130-400) 10^3/c mm MPV (7.4-10.4) fL Neut % (Auto) % Lymph % (Auto) % Burnett % (Auto) % Eos % (Auto) % Baso % (Auto) % Neut # (Auto) (1.8-7.7) 10^3/u L Lymph # (Auto) (0.8-4.8) 10^3/u L Burnett # (Auto) (0.2-0.9) 10^3/u L Eos # (Auto) (0.0-0.8) 10^3/u L Baso # (Auto) (0.0-0.1) 10^3/u L Nucleated RBC % (a uto) % Nucleated RBCs # /100WBC D-Dimer 0.48 (0-0.59) ug/mIFE U Sodium (136-145) mmol/L Potassium (3.5-5.1) mmol/L Chloride (98-107) mmol/L Carbon Dioxide (22-29) mmol/L Anion Gap (5-19) BUN (8-23) mg/dL Creatinine (0.5-0.9) mg/dL GFR Calculation Glucose (65-115) mg/dL Calculated Osmolal ity (285-295) mOsm/k g Calcium (8.5-10.5) mg/dL Total Bilirubin (0.15-1.2) mg/dL AST (0-32) U/L ALT (0-33) U/L Alkaline Phosphata se (35-105) IU/L Total Protein (6.6-8.7) g/dL Albumin (3.5-5.2) g/dL Globulin (1.3-4.6) g/dL Urine Color (Yellow) Urine Appearance (CLEAR) Urine pH (5-7) Ur Specific Gravit y (1.005-1.030) Urine Protein (Negative) Urine Glucose (UA) (Normal) Urine Ketones (Negative) Urine Blood (Negative) Urine Nitrate (Negative) Urine Bilirubin (Negative) Urine Urobilinogen (Negative) mg/dL Ur Leukocyte Carmita ase (Negative) Urine RBC (0-2) /hpf Urine WBC (0-5) /hpf Ur Squamous Epith Cells (0-5) /hpf Calcium Oxalate Cr ystal /hpf Amorphous Sediment Urine Bacteria (NONE) /hpf Hyaline Casts /lpf Imaging Data^: CXR: Attestation: I personally reviewed and interpreted this imaging study as follows: Radiologist's impression: IMPRESSION: No acute findings. Discharge Plan Discharge Patient Disposition: Home Clinical Impression: Chronic obstructive pulmonary disease, LEE (dyspnea on exertion) Condition: Stable Prescriptions: New albuterol sulfate 90 mcg/actuation HFA aerosol inhaler 2 puff inhalation Q4H PRN (Reason: shortness of breath or wheezing) Qty: 8.5 RF: 0 Medrol (Carl) 4 mg tablets,dose pack See Rx Instructions .ROUTE .COMPLEX Qty: 21 RF: 0 azithromycin 250 mg tablet 250 mg PO DAILY 6 Days RF: 0 No Action amlodipine 10 mg tablet 10 mg PO DAILY@1000 RF: 0 omeprazole 40 mg capsule,delayed release(DR/EC) 40 mg PO DAILY@1000 RF: 0 budesonide-formoterol [Symbicort] 80-4.5 mcg/actuation HFA aerosol inhaler 2 puff INHALATION BID RF: 0 fluoxetine 20 mg capsule 20 mg PO DAILY@1000 RF: 0 escitalopram oxalate 10 mg tablet 10 mg PO DAILY@1000 RF: 0 losartan 25 mg tablet 25 mg PO DAILY@1000 RF: 0 Discharge Orders: Discharge ED (Routine); Ordered 04/15/21 Ordered By: Collin Irwin Referrals: Alfonzo Hays DO [Primary Care Provider] - Discharge Diet: Advance as tolerated Discharge Activity: Resume usual activity Patient Instructions: Opioid Safety Activity Restrictions/Additional Instructions: Follow-up with your primary care physician may need referral to pulmonology. He should be set up for outpatient pulmonary function testing. Take medications as prescribed. Carry your rescue inhaler in your pocket and use when needed. Follow-up with PCP in 2 to 3 days. Coding Level of Care Code ED Regional Administrative Assistant for Chg Fwd Exam Comprehensive
[2021-04-15 18:04] LABS: Basophils % 0.5 %; Eosinophils # 0.1 10^3/uL (0.0-0.8); Hematocrit 39.4 % (37.0-47.0); Hemoglobin 12.4 g/dL (11.5-15.3); Lymphocytes # 2.1 10^3/uL (0.8-4.8); Lymphocytes % 26.3 %; Mean Corpuscular HGB Conc 31.5 g/dL (30.0-36.0); Mean Corpuscular Hemoglobin 30.1 pg (28.0-34.0); Mean Corpuscular Volume 95.6 fL (81-99); Mean Platelet Volume 8.6 fL (7.4-10.4); Monocytes # 0.7 10^3/uL (0.2-0.9); Monocytes % 9.3 %; Neutrophils # 4.87 10^3/uL (1.8-7.7); Neutrophils % 62.4 %; Nucleated Red Blood Cells % 0 %; Platelet Count 442 10^3/cmm (130-400); Red Blood Count 4.12 10^6/uL (4.1-5.3); Red Cell Distribution Width 15.8 % (12.1-15.1); White Blood Count 7.8 10^3/uL (4.0-10.0)
[2021-04-15 18:40] LABS: Add Urine Microscopic? YES; Bilirubin Urine 1+ (Negative); Blood Urine Neg (Negative); Glucose Urine UA Norm (Normal); Ketones Urine 1+ (Negative); Leukocyte Esterase Urine Negative (Negative); Nitrate Urine Negative (Negative); Protein Urine Trace (Negative); Specific Gravity, Urine 1.025 (1.005-1.030); Urine Appearance SL Hazy (CLEAR); Urine Color Dark Yellow (Yellow); Urobilinogen Urine 4 mg/dL (Negative); pH Urine 5 (5-7)
[2021-04-15 18:44] LABS: Alanine Aminotransferase 27 U/L (0-33); Albumin Level 4.4 g/dL (3.5-5.2); Alkaline Phosphatase 75 IU/L (35-105); Aspartate Amino Transferase 30 U/L (0-32); Blood Urea Nitrogen 18 mg/dL (8-23); Calcium 9.3 mg/dL (8.5-10.5); Carbon Dioxide 25 mmol/L (22-29); Chloride 106 mmol/L (98-107); Globulin 2.4 g/dL (1.3-4.6); Glucose 88 mg/dL (65-115); Osmolality Calculated 293 mOsm/kg (285-295); Sodium 141 mmol/L (136-145); Total Bilirubin 0.2 mg/dL (0.15-1.2); Total Protein 6.8 g/dL (6.6-8.7)
[2021-04-15 19:05] LABS: Bacteria Urine 1+ /hpf; Calcium Oxalate Crystals Urine 0-4 /hpf
[2021-04-15 19:06] LABS: Add Urine Culture? No; RBC Urine 0-4 /hpf (0-2); Squamous Epithelial Cell Urine 0-4 /hpf (0-5); WBC Urine 0-4 /hpf (0-5)
[2021-04-15] MEDS: ipratropium-albuterol 3 mL Neb INHALATION (19:43)
[2021-04-15 20:08] LABS: D Dimer 0.48 ug/mIFEU (0-0.59)
[2021-04-15 20:14] LABS: Anion Gap 14.3 (5-19); Potassium 4.3 mmol/L (3.5-5.1)
== END 2021-04-15 21:21 | disposition home or self-care (01) ==
PROVIDERS: Family Medicine; Physician Assistant; Emergency Provider Emergency Medicine; PCP Family Medicine
DX: J44.9 Chronic obstructive pulmonary disease, unspecified (principal); R06.00 Dyspnea, unspecified; I10 Essential (primary) hypertension
CPT/HCPCS: 71045; 80053; 81001; 85025; 85378; 94640; 99283

== ENCOUNTER → 2021-08-21 13:11 | Outpatient (BNVA) | payer MEDICARE, OTHER, SELFPAY | PROVIDERS: PCP Family Medicine; Visit Provider Nurse Practitioner | DX: R06.02 Shortness of breath (principal) | CPT/HCPCS: 71046 ==

== ENCOUNTER 2022-10-23 12:23 | Outpatient (CLI) | payer MEDICARE, OTHER, SELFPAY ==
--- NOTE | 2022-10-23 12:50 | MM_ITS ---
WS: [id number] VIEWS: MLO and CC views both breasts. 3D digital tomosynthesis is also included in this exam. Comparison made with prior exam of 11/08/2008, 12/02/2010, 05/03/2012, 04/08/2018, 06/20/2019, 12/10/2020.. Findings: There was no sign of mass, architectural distortion or suspicious calcification in either breast. Sta ble appearing nodular densities in both breasts.Fatty MM/[place] [id number] Impression: BI-RADS: 2-Benign FOLLOW-UP: 1 Year Follow-up This mammogram was also analyzed by the Computer Aided Detection System R2 Imag e Tub Mender.
== END 2022-10-23 12:24 | disposition home or self-care (01) ==
LOC: RAD 12:25
PROVIDERS: PCP Family Medicine; Visit Provider Family Medicine
DX: Z12.31 Encounter for screening mammogram for malignant neoplasm of breast (principal)
CPT/HCPCS: 77063; 77067

== ENCOUNTER → 2023-01-26 10:38 | Outpatient (BNVA) | payer MEDICARE, OTHER, SELFPAY | PROVIDERS: PCP Family Medicine; Visit Provider Clinical Nurse Specialist Adult Health | DX: I10 Essential (primary) hypertension (principal); R39.15 Urgency of urination; R32 Unspecified urinary incontinence; D50.9 Iron deficiency anemia, unspecified; F33.1 Major depressive disorder, recurrent, moderate; M14.60 Charcot's joint, unspecified site; R73.9 Hyperglycemia, unspecified; G62.9 Polyneuropathy, unspecified | CPT/HCPCS: 80053; 80061; 81000; 82306; 82728; 82746; 83036; 83550; 84443; 84466; 85025; 85651; 86140 ==

== ENCOUNTER → 2023-01-27 14:03 | Outpatient (BNVA) | payer MEDICARE, OTHER, SELFPAY | PROVIDERS: PCP Family Medicine; Visit Provider Clinical Nurse Specialist Adult Health | DX: D50.9 Iron deficiency anemia, unspecified (principal) | CPT/HCPCS: 82607 ==

== ENCOUNTER → 2023-02-03 13:16 | Outpatient (BNVA) | payer MEDICARE, OTHER, SELFPAY | PROVIDERS: PCP Family Medicine; Visit Provider Family Medicine | DX: D50.9 Iron deficiency anemia, unspecified (principal) | CPT/HCPCS: 82270 ==

== ENCOUNTER → 2023-06-14 14:46 | Outpatient (BNVA) | payer MEDICARE, OTHER, SELFPAY | PROVIDERS: PCP Clinical Nurse Specialist Adult Health; Visit Provider Emergency Medicine | DX: J06.9 Acute upper respiratory infection, unspecified (principal) | CPT/HCPCS: 87426 ==

== ENCOUNTER 2023-06-17 12:30 | Outpatient (CLI) | payer MEDICARE, OTHER, SELFPAY ==
--- NOTE | 2023-06-17 13:03 | XR_ITS ---
WS: [id number] Chest 2 views, 06/17/2023 Clinical Data: shortness of breath Comparison: 2 view chest, 08/21/2021 Findings: No nodules, masses or effusions are seen. The heart is normal. The pulmonary vascularity is not increased. No pneumonia or pneumothorax is seen. The aortic arch and descending thoracic aorta s hows tortuosity. There is a large hiatal hernia behind the heart the anterior aspect of the right suresh phragm is elevated but unchanged. There are old compression fractures of the T12 and L2 vertebral bod ies with loss of 25 to 50% of the vertebral body height. Impression: Atherosclerosis and hiatal hernia.
[2023-06-17 13:07] LABS: Basophils % 0.2 %; Hemoglobin 9.6 g/dL (11.5-15.3); Lymphocytes # 0.9 10^3/uL (0.8-4.8); Lymphocytes % 7.3 %; Mean Corpuscular Hemoglobin 25.2 pg (28.0-34.0); Mean Platelet Volume 8.6 fL (7.4-10.4); Monocytes # 0.5 10^3/uL (0.2-0.9); Neutrophils # 10.88 10^3/uL (1.8-7.7); Neutrophils % 87.9 %; Nucleated Red Blood Cells % 0.2 %; Platelet Count 501 10^3/cmm (130-400); Red Blood Count 3.81 10^6/uL (4.1-5.3); Red Cell Distribution Width 17.1 % (12.1-15.1); White Blood Count 12.4 10^3/uL (4.0-10.0)
[2023-06-17 13:08] LABS: Erythrocyte Sedimentation Rate 17 mm/hr (0-15)
[2023-06-17 13:24] LABS: Alanine Aminotransferase 19 U/L (0-33); Albumin Level 4.3 g/dL (3.5-5.2); Alkaline Phosphatase 77 U/L (35-105); Anion Gap 16.5 (5-19); Aspartate Amino Transferase 19 U/L (0-32); Blood Urea Nitrogen 21 mg/dL (8-23); Calcium 9.5 mg/dL (8.5-10.5); Carbon Dioxide 25 mmol/L (22-29); Chloride 105 mmol/L (98-107); Globulin 2.8 g/dL (1.3-4.6); Glucose 166 mg/dL (65-115); Magnesium 1.9 mg/dL (1.7-2.3); Osmolality Calculated 301 mOsm/kg (285-295); Potassium 4.5 mmol/L (3.5-5.1); Sodium 142 mmol/L (136-145); Total Bilirubin 0.2 mg/dL (0.15-1.2); Total Protein 7.1 g/dL (6.6-8.7)
== END 2023-06-17 12:31 | disposition home or self-care (01) ==
LOC: LAB 12:35
PROVIDERS: PCP Clinical Nurse Specialist Adult Health; Visit Provider Clinical Nurse Specialist Adult Health
DX: J44.9 Chronic obstructive pulmonary disease, unspecified (principal); R25.2 Cramp and spasm; I70.90 Unspecified atherosclerosis; K44.9 Diaphragmatic hernia without obstruction or gangrene
CPT/HCPCS: 36415; 71046; 80053; 83735; 85025; 85651; 86140

== ENCOUNTER 2023-07-07 12:16 | Outpatient (CLI) | payer MEDICARE, SELFPAY ==
--- NOTE | 2023-07-07 12:28 | USCV_ITS ---
Jane Zheng Age: 73 Gender: F : 1950 Exam Date: 07/07/2023 12:43 Ordering Phys: Gerald Patel MD Technologist: [place] [facility] [place]ication: pad RIGHT LEFT Brachial 109.00 mmHg Brachial 125.00 mmHg Pressure (mmHg) Waveform Pressure (mmHg) Waveform 132.00 POINT OF SALE ASSOCIATE 129.00 120.00 DPA 123.00 1.00 Ankle/Brachial Index 1.00 98.00 Pre-Exercise Toe Pressure 109.00 0.78 Pre-Exercise Toe/Brachial Index 0.87 FINDINGS The resting HIRAM 1.0 bilaterally The resting TBI of 0.72 on the right and 0.87 on the left CONCLUSIONS Normal resting ABIs and TBIs bilaterally. No significant arterial obstruction based on the above findings. Dr Chago Koehler MD [facility] (Electronically Signed) Final Date: 07 July 2023 14:16 S
== END 2023-07-07 12:17 | disposition home or self-care (01) ==
PROVIDERS: PCP Clinical Nurse Specialist Adult Health; Visit Provider Family Medicine
DX: I73.9 Peripheral vascular disease, unspecified (principal)
CPT/HCPCS: 87426; 93922

== ENCOUNTER 2023-07-14 13:20 | Outpatient (CLI) | payer MEDICARE, OTHER, SELFPAY ==
--- NOTE | 2023-07-14 13:30 | XR_ITS ---
WS: [id number] DEXA (DUAL ENERGY X-RAY ABSORPTIOMETRY) Bone mineral density was performed using a [employer] machine. HISTORY: spontaneous compression fracture COMPARISON: None available. Lumbar spine BMD (L1-L4): 1.094 T score: -0.9 Z score: -0.1 Total hip BMD: Left: 0.852 g/cm2. T score: -1.2 Z score: -0.2 Right: 0.830 g/cm2. T score: -1.4 Z score: -0.4 10 year probability of a major osteoporotic fracture is 14.5%. IMPRESSION: OSTEOPENIA based upon the WHO classification for females.
== END 2023-07-14 13:21 | disposition home or self-care (01) ==
PROVIDERS: PCP Clinical Nurse Specialist Adult Health; Visit Provider Clinical Nurse Specialist Adult Health
DX: M48.56XA Collapsed vertebra, not elsewhere classified, lumbar region, initial encounter for fracture (principal); M85.80 Other specified disorders of bone density and structure, unspecified site
CPT/HCPCS: 77080

== ENCOUNTER 2023-07-16 13:33 | Outpatient (CLI) | payer MEDICARE, OTHER, SELFPAY ==
--- NOTE | 2023-07-16 | CTR_ITS ---
PROCEDURE INFORMATION: Exam: CT Lumbar Spine Without Contrast Exam date and time: 07/16/2023 1:50 PM Age: 73 years old Clinical indication: Condition or disease; Other: Compression fracture; Prior surgery; Surgery date: 6+ months; Surgery type: C section; Patient HX: Lower back pain that radiates down both legs. Known compression fracure TECHNIQUE: Imaging protocol: Computed tomography of the lumbar spine without contrast. Radiation optimization: All CT scans at this facility use at least one of these dose optimization techniques: automated exposure control; mA and/or kV adjustment per patient size (includes targeted exams where dose is matched to clinical indication); or iterative reconstruction. REPORTING DATA: Count of CT and Cardiac NM exams in prior 12 months: This patient has received 0 known CTs and 0 known cardiac nuclear medicine studies in the 12 months prior to the current study. COMPARISON: CR XR lumbar spine 6V w f/e [id number] 06/14/2023 1:44 PM RADIATION DOSE METRICS: Total DLP (mGy-cm): 597.06 FINDINGS: Bones/joints: There is mild compression deformity involving superior endplate of L2. This is chronic in appearance. This is not changed compared with the 06/14/2023. No acute fracture is demonstrated. T12-L1: Decreased height of the disc and vacuum disc phenomenon. No focal herniation or stenosis. L1-L2: Mild degenerative changes in the facet joints. No focal disc herniation or stenosis. L2-L3: Mild diffuse posterior bulging of the disc. No focal herniation. No stenosis. Approximately 3 mm retrolisthesis L2 on L3. L3-L4: Diffuse posterior bulging of the disc and mild subarticular protrusion on the right. Hypertrophic changes in the facet joints. No significant central canal or foraminal stenosis. L4-L5: Diffuse posterior bulging of the disc without focal herniation. Degenerative changes facet joints bilaterally and mild hypertrophy of the ligamentum flavum. Mild central canal stenosis narrowing the sagittal diameter of the canal to 9 mm. L5-S1: Severe narrowing of the disc space and vacuum disc phenomenon. No significant foraminal stenosis. Mild posterior bulging of the disc. No focal herniation. Mild bilateral foraminal narrowing. Soft tissues: Unremarkable. CT/CT lumbar spine wo con* [id number] IMPRESSION: Degenerative changes in the lumbar spine as described with subarticular disc protrusion on the right at L3-L4 and mild stenosis L4-L5.
== END 2023-07-16 13:34 | disposition home or self-care (01) ==
LOC: RAD 13:36
PROVIDERS: PCP Clinical Nurse Specialist Adult Health; Visit Provider Family Medicine
DX: M51.26 Other intervertebral disc displacement, lumbar region (principal)
CPT/HCPCS: 72131

== ENCOUNTER → 2023-08-17 13:20 | Outpatient (BNVA) | payer MEDICARE, OTHER, SELFPAY | PROVIDERS: PCP Clinical Nurse Specialist Adult Health; Visit Provider Internal Medicine Pulmonary Disease | DX: R06.02 Shortness of breath (principal); R05.8 Other specified cough; J44.9 Chronic obstructive pulmonary disease, unspecified; K44.9 Diaphragmatic hernia without obstruction or gangrene; E66.01 Morbid (severe) obesity due to excess calories; Z68.32 Body mass index [BMI] 32.0-32.9, adult; J45.909 Unspecified asthma, uncomplicated | CPT/HCPCS: 71046; 99214 ==

== ENCOUNTER 2023-08-25 06:39 | Outpatient (CLI) | payer MEDICARE, OTHER, SELFPAY ==
--- NOTE | 2023-08-25 07:00 | CT_ITS ---
WS: [id number] CT chest wo con [id number] HISTORY: Coughing TECHNIQUE: Axial imaging performed through the thorax. Coronal and sagittal reformats are submitted. All CT scans at [facility] use at least one of these dose optimization techniques: automated exposure control; mA and/or kV adjustment per patient size (includes targeted exams where dose is mat ched to clinical indication); or iterative reconstruction. CONTRAST: None DLP: 522.51 mGy.cm COMPARISON: 04/17/2020 Lungs and central airway: Moderate elevation of the RIGHT diaphragm. Elevation of the diaphragm is ca using partial atelectasis of the RIGHT middle lobe. There are a few scattered benign calcified granul omata. No mass. No nodules. Pleura: Normal. No pleural effusion. Heart and pericardium: Moderate cardiomegaly. No pericardial effusion. Mediastinum and erik: Small benign-appearing mediastinal and hilar lymph nodes. Vessels: Mild atherosclerosis aorta. Normal sized pulmonary artery. Chest wall and lower neck: No soft tissue masses. Upper abdomen: Stomach is intrathoracic. No obstruction of the stomach. Normal adrenal glands. Mild a therosclerosis aorta. Osseous structures: Increase in thoracic kyphosis. Osteopenia. IMPRESSION: 1. Moderate elevation of the RIGHT hemidiaphragm. Decreased pulmonary expansion due to the elevated d iaphragm and partial atelectasis of the RIGHT middle lobe. 2. Intrathoracic stomach. 3. Prior granulomatous disease. 4. Mild atherosclerosis aorta. 5. Moderate cardiomegaly.
--- NOTE | 2023-08-25 08:30 | USCV_ITS ---
Jane Zheng Age: 73 Gender: F : 1950 Exam Date: 08/25/2023 07:00 Ordering Phys: Isauro Viera MD Technologist: YULIET Exam Location: [facility] – [place] Indication: INCREASED SOB BP: 136 / 88 HR: 81 Rhythm: Sinus Technical Quality: Adequate MEASUREMENTS (Male / Female) Normal Values 2D ECHO LVOT Diameter 2.0 cm LV Ejection Fraction MOD 2C 55.9 % LV Ejection Fraction 2C AL 59.3 % LA Diameter 3.7 cm LA Width 2.9 cm LA Height 5.8 cm RA Width 3.5 cm RA Height 4.2 cm Aorta at Sinotubular Diameter 2.8 cm IVC Diameter 1.7 cm M-MODE Aortic Annulus Diameter 2.7 cm LA Ao Ratio MM 1.5 MV E Point Septal Separation 0.7 cm DOPPLER AV Peak Velocity 171.0 cm/s LVOT Peak Velocity 111.0 cm/s AV Area Cont Eq vti 2.1 cm squared AV Area Cont Eq pk 2.0 cm squared MV Peak Velocity 83.0 cm/s MV Area PHT 4.1 cm squared Mitral E to A Ratio 1.1 MV E' Velocity 43.0 cm/s Mitral E to MV E' Ratio 8.7 Mitral E to LV E' Lateral Ratio 8.2 Mitral E to LV E' Septal Ratio 9.2 TR Peak Velocity 294.6 cm/s TR Peak Gradient 34.7 mmHg TR Mean Velocity 252.6 cm/s TR Mean Gradient 25.7 mmHg TR Velocity Time Integral 109.5 cm TV Peak E Velocity 62.0 cm/s Right Atrial Pressure 3.0 mmHg Pulmonary Artery Systolic Pressu 37.7 mmHg PV Peak Velocity 95.0 cm/s RV Acceleration Time 0.1 s RV Ejection Time 0.3 s RV AcT/ET 0.3 FINDINGS Left Ventricle Left ventricle is normal in size. LV systolic function is grossly normal with EF of 50 to 55%. Regional wall motion abnormalities are difficult to assess because of limited visualization. Right Ventricle The right ventricle is normal in size and function. Right Atrium The right atrium is normal in size. Left Atrium Dilated Mitral Valve Structurally normal mitral valve. Trace mitral regurgitation. Aortic Valve Structurally normal aortic valve. No significant stenosis or regurgitation. Tricuspid Valve Trace tricuspid regurgitation. Insufficient TR jet to calculate RVSP Pulmonic Valve Not well visualized Pericardium Normal pericardium without effusion. Aorta Normal ascending aorta dimension. IVC The inferior vena cava appears normal. CONCLUSIONS Technically limited quality echocardiogram because of poor ultrasonic windows. LV systolic function is grossly normal with EF of 50 to 55%. Regional wall motion abnormalities are difficult to assess accurately because of limited visualization Left atrial dilation Trace mitral regurgitation Trace tricuspid regurgitation Compared to prior echocardiogram from 2019, no significant changes are seen Golden Navarrete MD (Electronically Signed) Final Date: 25 August 2023 08:41 S
== END 2023-08-25 06:40 | disposition home or self-care (01) ==
LOC: RAD 06:40
PROVIDERS: PCP Clinical Nurse Specialist Adult Health; Visit Provider Internal Medicine Pulmonary Disease
DX: R05.8 Other specified cough (principal); R06.02 Shortness of breath; I51.7 Cardiomegaly; J98.11 Atelectasis; I70.0 Atherosclerosis of aorta
CPT/HCPCS: 71250; 93306

== ENCOUNTER → 2023-09-07 09:17 | Outpatient (BNVA) | payer MEDICARE, OTHER, SELFPAY | PROVIDERS: PCP Clinical Nurse Specialist Adult Health; Referring Provider Family Medicine; Visit Provider Anesthesiology Pain Medicine | DX: M48.061 Spinal stenosis, lumbar region without neurogenic claudication; M47.816 Spondylosis without myelopathy or radiculopathy, lumbar region | CPT/HCPCS: 99204 ==

== ENCOUNTER 2023-09-09 12:08 | Emergency (ER) | payer MEDICARE, OTHER, SELFPAY ==
[2023-09-09] VITALS (8 sets, daily range): BP systolic 133–163; BP diastolic 80–105; PULSE 47–96; RESP 16–18; TEMP 37.1; O2SAT 88–99; BMI 35.2
--- NOTE | 2023-09-09 12:14 | XR_ITS ---
WS: [id number] Portable AP upright chest, 09/09/2023 Clinical Data: sob Comparison: 2 view chest, 08/17/2023 Findings: No nodules, masses or effusions are seen. The heart is normal. The pulmonary vascularity is not increased. No pneumonia or pneumothorax is seen. The aortic arch shows tortuosity. There is a hi atal hernia behind the heart. The patient has a poor inspiratory effort. Impression: Atherosclerosis.
--- NOTE | 2023-09-09 12:14 | ECG_ITS ---
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 Measurements Intervals [place] Rate: 92 P: 29 WA: 163 QRS: 0 QRSD: 83 T: 67 QT: 314 QTc: 390 Interpretive Statements SINUS RHYTHM LOW QRS VOLTAGE IN PRECORDIAL LEADS [QRS DEFLECTION < 1.0 mV IN CHEST LEADS] NONSPECIFIC ST & T-WAVE ABNORMALITY Compared to ECG 05/04/2020 12:55:05 Low QRS voltage now present Sinus arrhythmia no longer present T-wave abnormality still present Electronically Signed On 09-09-2023 16:37:03 YARD FOREMAN by Golden Navarrete M.D. [email or web address] [email or web address] mississippi medical centerKreditechst. [facility].[employer]/store/OM/[id number]
--- NOTE | 2023-09-09 12:29 | W.ED.SOB ---
HPI - SOB/Dyspnea General: Chief Complaint: Shortness of Breath/Dyspnea Stated Complaint: sob Time Seen by Provider: 09/09/23 12:29 Source: patient Mode of arrival: ambulatory History of Present Illness: HPI Narrative: 73-year-old female presents emergency room complaining of increasing shortness of breath. Patient has a history of COPD and chronic bronchitis she was seen recently and started on steroids and levofloxacin but she has not begun those. She does see Dr. Xavier in the pulmonology clinic she has a rescue inhaler and she is also on LABA inhaled corticosteroid combination medication which she has been taking regularly. She has not used any of her rescue inhalers today. She denies any chest pain at this time. MD elicited complaint: shortness of breath and cough Associated symptoms: Deny abdominal pain, chest pain or fever(s) Review of Systems Const: Denies: fever(s) or chills Card: Denies: chest pain Resp: Denies: dyspnea GI: Denies: abdominal pain : Denies: dysuria, urinary frequency or urinary urgency Musc: Denies: neck pain or back pain Skin/Breast: Denies: rash PFSH ED PFSH: Medical History Arthritis of knee Asthma-COPD overlap syndrome Chronic obstructive pulmonary disease Diagnosed with bronchitis in 2019 and was placed on inhalers--she does not use them as prescribed she feels she does not need them-has a follow-up appointment scheduled with insurance salesperson. Essential hypertension Fatigue GERD (gastroesophageal reflux disease) Controlled with medication-states that she has not had an EGD before. HTN (hypertension) Diagnosed in the nineteen nineties managed by medication and her primary care provider. 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 Impacted cerumen of both ears Incontinence of urine Iron deficiency anemia Lumbar stenosis Major depression Muscle cramps at night Neuropathy Obesity (BMI 30.0-34.9) Urinary urgency Vitamin B12 deficiency Surgical History Status post delivery 1985- delivery x1. Family History Father Hypertension Mother Breast cancer Diagnosed at age 50, of same at age 58 Denies family history of Colon cancer Ovarian cancer Diabetes Heart disease Hyperlipidemia Uterine cancer Thyroid disease Stroke Social History Smoking and tobacco/nicotine status: never used tobacco/nicotine Second hand smoke exposure: No Alcohol intake: never Substance/Drug Use: never Lives independently: Yes Household members: spouse Housing: House Marital status: Current occupational status: retired Pets and animals: Yes Do you think of yourself as: Straight/Heterosexual Current gender identity: Female Physical Exam Const: COMMON NORMALS: no acute distress GENERAL APPEARANCE: cooperative and comfortable ORIENTATION/CONSCIOUSNESS: Yes awake, Yes oriented to person, Yes oriented to place and Yes oriented to time HENMT: COMMON NORMALS: normocephalic, atraumatic and hearing grossly normal bilaterally HEAD & SCALP: normocephalic and atraumatic Resp: COMMON NORMALS: normal respiratory effort, No retractions, No use of accessory muscles and clear to auscultation bilaterally AUSCULTATION: clear to auscultation bilaterally Cardio: COMMON NORMALS: regular rate, regular rhythm and No murmurs present (Cardio) RATE: regular rate RHYTHM: regular rhythm GI: COMMON NORMALS: Soft to palpation and No hepatosplenomegaly present AUSCULTATION: Yes normoactive bowel sounds PALPATION: Yes Soft to palpation, No Tenderness to palpation present (GI), No Guarding due to palpation present (GI) and Yes No hepatosplenomegaly present Extremity: COMMON NORMALS: normal to inspection, capillary refill normal, no clubbing, cyanosis or edema, no calf tenderness and no pedal edema Neuro: SENSORIUM/ORIENTATION: Yes oriented to person, Yes oriented to place and Yes oriented to time Skin: COMMON NORMALS: no rashes or lesions noted GENERAL SKIN EXAM: no rashes or lesions noted Course Vital Signs: Vital signs: Vital Signs Temperature 98.8 F 09/09/23 12:13 Pulse Rate 95 09/09/23 14:27 Respiratory Rate 17 09/09/23 14:27 Blood Pressure 133/105 09/09/23 14:27 Pulse Oximetry 88 L 09/09/23 15:09 Oxygen Delivery Me thod Room Air 09/09/23 14:27 Oxygen Flow Rate 2 09/09/23 15:09 MDM - SOB/Dyspnea Medical Decision Making Acute exacerbation of COPD patient states she felt much better after the nebulizer. Encouraged her to start the steroids and oral antibiotics as previously prescribed she did qualify for home oxygen we will discharge her home with that I also have her use albuterol ipratropium nebs 4 times daily and Q4 hours as needed. Recheck with pulmonology or primary care next week. Return if has further problems. Medical Records I reviewed the patient's medical records. Lab Data I reviewed the patient's lab results. 09/09/23 12:52 09/09/23 12:52 Labs/Radiology: Laboratory Results WBC 10.34 10^3/uL (3.29-11.43) 09/09/23 12:52 RBC 3.75 10^6/uL (3.85-5.65) L 09/09/23 12:52 Hgb 9.30 g/dL (11.27-16.99) L 09/09/23 12:52 Hct 31.4 % (36-47) L 09/09/23 12:52 MCV 83.7 fl (85-98) L 09/09/23 12:52 MCH 24.8 pg (27-33) L 09/09/23 12:52 MCHC 29.6 g/dL (30-55) L 09/09/23 12:52 RDW 18.9 % (12.1-15.1) H 09/09/23 12:52 Plt Count 555 10^3/cmm (157-399) H 09/09/23 12:52 MPV 9.0 fL (7.4-10.4) 09/09/23 12:52 Neut % (Auto) 76.0 % 09/09/23 12:52 Lymph % (Auto) 14.3 % 09/09/23 12:52 Stanly % (Auto) 8.8 % 09/09/23 12:52 Eos % (Auto) 0.1 % 09/09/23 12:52 Baso % (Auto) 0.1 % 09/09/23 12:52 Neut # (Auto) 7.86 10^3/uL (1.8-7.7) H 09/09/23 12:52 Lymph # (Auto) 1.5 10^3/uL (0.8-4.8) 09/09/23 12:52 Stanly # (Auto) 0.9 10^3/uL (0.2-0.9) 09/09/23 12:52 Eos # (Auto) 0.0 10^3/uL (0.0-0.8) 09/09/23 12:52 Baso # (Auto) 0.0 10^3/uL (0.0-0.1) 09/09/23 12:52 Nucleated RBC % (auto) 0.2 % 09/09/23 12:52 Nucleated RBCs # 0.0 /100WBC 09/09/23 12:52 Sodium 140 mmol/L (136-145) 09/09/23 12:52 Potassium 4.1 mmol/L (3.5-5.1) 09/09/23 12:52 Chloride 104 mmol/L (98-107) 09/09/23 12:52 Carbon Dioxide 24 mmol/L (22-29) 09/09/23 12:52 Anion Gap 16.1 (5-19) 09/09/23 12:52 BUN 17 mg/dL (8-23) 09/09/23 12:52 Creatinine 0.7 mg/dL (0.5-0.9) 09/09/23 12:52 GFR Calculation Not Reportable 09/09/23 12:52 Glucose 114 mg/dL (65-115) 09/09/23 12:52 Calculated Osmolality 292 mOsm/kg (285-295) 09/09/23 12:52 Calcium 10.6 mg/dL (8.5-10.5) H 09/09/23 12:52 Total Bilirubin 0.3 mg/dL (0.15-1.2) 09/09/23 12:52 AST 34 U/L (0-32) H 09/09/23 12:52 ALT 29 U/L (0-33) 09/09/23 12:52 Alkaline Phosphatase 76 U/L (35-105) 09/09/23 12:52 NT-Pro-B Natriuret Pep 234 pg/mL (0-125) H 09/09/23 12:52 Total Protein 7.1 g/dL (6.6-8.7) 09/09/23 12:52 Albumin 4.7 g/dL (3.5-5.2) 09/09/23 12:52 Globulin 2.4 g/dL (1.3-4.6) 09/09/23 12:52 All radiology interpretation(s) finalized by discharge Discharge Plan Discharge Patient Disposition: Home Clinical Impression: Acute exacerbation of chronic obstructive pulmonary disease (COPD) Condition: Stable Prescriptions: New ipratropium-albuterol 0.5 mg-3 mg(2.5 mg base)/3 mL solution for nebulization 3 ml inhalation Q4H PRN (Reason: shortness of breath or wheezing) Qty: 90 0RF No Action levofloxacin 750 mg tablet 750 mg PO DAILY Qty: 7 0RF methylprednisolone [Medrol] 4 mg tablet See Rx Instructions .Route .COMPLEX Qty: 20 0RF Rx Instructions: 4 tabs daily for 2 days, then 3 tabs daily for 2 days, then 2 tabs daily X 2 days then 1 tab daily X 2 days then stop benzonatate 100 mg capsule 100 mg PO TID PRN (Reason: cough) Qty: 45 0RF albuterol sulfate 90 mcg/actuation HFA aerosol inhaler 2 puff inhalation Q4H PRN (Reason: shortness of breath or wheezing) Qty: 8.5 4RF (DME) compressor, for nebulizer Device See Rx Instructions .Route Qty: 1 0RF Rx Instructions: As directed Celina Aerosphere 160-9-4.8 mcg/actuation HFA aerosol inhaler 2 inh inhalation BID Qty: 10.7 3RF omeprazole 40 mg capsule,delayed release(DR/EC) 40 mg PO DAILY@1000 Qty: 90 3RF albuterol sulfate 2.5 mg /3 mL (0.083 %) solution for nebulization 2.5 mg inhalation Q4H PRN (Reason: shortness of breath or wheezing) Qty: 75 1RF tramadol 50 mg tablet 50 mg PO TID PRN (Reason: Pain) amlodipine 10 mg tablet 10 mg PO DAILY losartan 25 mg tablet 25 mg PO DAILY acetaminophen 500 mg capsule 500 mg PO Q6H PRN (Reason: fever) Discharge Orders: Discharge ED (Routine); Ordered 09/09/23 Ordered By: Shivam Boss Other Ambulatory Orders: DME: Oxygen (Order) Location: None Selected Ordered By: Shivam Boss Referrals: Serafin Yates SCHOOL RESOURCE OFFICER [Primary Care Provider] - Discharge Diet: Usual diet Discharge Activity: Increase activity as tolerated Patient Instructions: Opioid Safety, Pain Management Activity Restrictions/Additional Instructions: Thank you for choosing [facility] for your healthcare needs today. Please realize this is an emergency room and that we are providing you with a medical screening exam and this may not be complete and all inclusive of all the testing and or work up that you may need to determine your ailment or severity of your illness. It is very important that you follow up as instructed or that you return to the Emergency Department should you have concerns or if your condition changes or worsens in any way. Recommend he start oral antibiotics and steroids as previously prescribed. Use the albuterol ipratropium bromide nebulizers at least 4 times a day while awake and you can use them every 4 hours if needed. Follow-up with Dr. Xavier your primary care doctor within the next week. Coding Level of Care Code ED Hydraulic Lift Driver for Ev Freedman
[2023-09-09 13:03] LABS: Basophils % 0.1 %; Eosinophils % 0.1 %; Hematocrit 31.4 % (36-47); Lymphocytes # 1.5 10^3/uL (0.8-4.8); Lymphocytes % 14.3 %; Mean Corpuscular HGB Conc 29.6 g/dL (30-55); Mean Corpuscular Hemoglobin 24.8 pg (27-33); Mean Corpuscular Volume 83.7 fl (85-98); Monocytes # 0.9 10^3/uL (0.2-0.9); Monocytes % 8.8 %; Neutrophils # 7.86 10^3/uL (1.8-7.7); Nucleated Red Blood Cells % 0.2 %; Platelet Count 555 10^3/cmm (157-399); Red Blood Count 3.75 10^6/uL (3.85-5.65); Red Cell Distribution Width 18.9 % (12.1-15.1); White Blood Count 10.34 10^3/uL (3.29-11.43)
[2023-09-09 13:31] LABS: Alanine Aminotransferase 29 U/L (0-33); Albumin Level 4.7 g/dL (3.5-5.2); Alkaline Phosphatase 76 U/L (35-105); Anion Gap 16.1 (5-19); Aspartate Amino Transferase 34 U/L (0-32); Blood Urea Nitrogen 17 mg/dL (8-23); Calcium 10.6 mg/dL (8.5-10.5); Carbon Dioxide 24 mmol/L (22-29); Chloride 104 mmol/L (98-107); Globulin 2.4 g/dL (1.3-4.6); Glucose 114 mg/dL (65-115); NT Pro B Type Natriuretic Pept 234 pg/mL (0-125); Osmolality Calculated 292 mOsm/kg (285-295); Potassium 4.1 mmol/L (3.5-5.1); Sodium 140 mmol/L (136-145); Total Bilirubin 0.3 mg/dL (0.15-1.2); Total Protein 7.1 g/dL (6.6-8.7)
[2023-09-09] MEDS: lidocaine 2% viscous 15 ML, aluminum-mag hydrox-simethicon 30 ML, sucralfate oral liq 1 GM PO (13:44)
[2023-09-09] MEDS: dexamethasone 10 mg/mL INJ IM (13:44)
[2023-09-09] MEDS: ipratropium-albuterol 3 mL Neb INHALATION (13:48)
== END 2023-09-09 18:15 | disposition home or self-care (01) ==
PROVIDERS: Emergency Medicine; Emergency Provider Family Medicine; PCP Clinical Nurse Specialist Adult Health
DX: J44.1 Chronic obstructive pulmonary disease with (acute) exacerbation (principal); I10 Essential (primary) hypertension
CPT/HCPCS: 71045; 80053; 83880; 85025; 93005; 94640; 96372; 99285; J1100

== ENCOUNTER 2023-09-16 07:54 | Outpatient (CLI) | payer MEDICARE, OTHER, SELFPAY ==
[2023-09-16 08:21] VITALS: PULSE 77; RESP 20; O2SAT 98
[2023-09-16] MEDS: albuterol 2.5 mg/3 mL Neb INHALATION (08:21)
[2023-09-16 08:26] VITALS: PULSE 81
== END 2023-09-16 07:55 | disposition home or self-care (01) ==
LOC: RT 07:54
PROVIDERS: PCP Clinical Nurse Specialist Adult Health; Visit Provider Internal Medicine Pulmonary Disease
DX: R06.02 Shortness of breath (principal)
CPT/HCPCS: 94060; 94618; 94726; 94729; 99214; J7613

== ENCOUNTER → 2023-09-21 13:54 | Outpatient (BNVA) | payer MEDICARE, OTHER, SELFPAY | PROVIDERS: PCP Clinical Nurse Specialist Adult Health; Visit Provider Internal Medicine Pulmonary Disease | DX: R09.89 Other specified symptoms and signs involving the circulatory and respiratory systems (principal); J44.9 Chronic obstructive pulmonary disease, unspecified; K44.9 Diaphragmatic hernia without obstruction or gangrene; E66.01 Morbid (severe) obesity due to excess calories; J45.909 Unspecified asthma, uncomplicated; Z68.31 Body mass index [BMI] 31.0-31.9, adult | CPT/HCPCS: 71046; 99214 ==

== ENCOUNTER → 2023-12-16 10:21 | Outpatient (BNVA) | payer MEDICARE, OTHER, SELFPAY | PROVIDERS: PCP Clinical Nurse Specialist Adult Health; Visit Provider Internal Medicine Pulmonary Disease | DX: J40 Bronchitis, not specified as acute or chronic (principal); J44.9 Chronic obstructive pulmonary disease, unspecified; K44.9 Diaphragmatic hernia without obstruction or gangrene | CPT/HCPCS: 99214 ==

== ENCOUNTER 2024-02-01 04:02 | Emergency (ER) | payer MEDICARE, OTHER, SELFPAY ==
[2024-02-01 04:07] VITALS: BP 146/93; PULSE 78; RESP 20; TEMP 36.6; O2SAT 95; BMI 31.8
--- NOTE | 2024-02-01 04:25 | ECG_ITS ---
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 Measurements Intervals [place] Rate: 73 P: 81 MT: 162 QRS: -20 QRSD: 80 T: 17 QT: 376 QTc: 417 Interpretive Statements SINUS RHYTHM LOW QRS VOLTAGE IN PRECORDIAL LEADS [QRS DEFLECTION < 1.0 mV IN CHEST LEADS] POSSIBLE RIGHT VENTRICULAR CONDUCTION DELAY [RSR (QR) IN V1/V2] INFERIOR MYOCARDIAL INFARCTION , PROBABLY OLD [40+ ms Q WAVE AND/OR ST/T ABNORMALITY IN II/aVF] Compared to ECG 09/09/2023 12:30:16 Myocardial infarct finding now present T-wave abnormality no longer present Electronically Signed On 02-01-2024 11:45:14 CDT by Golden Navarrete M.D. [id number] f
--- NOTE | 2024-02-01 04:25 | XRR_ITS ---
PROCEDURE INFORMATION: Exam: XR Chest Exam date and time: 02/01/2024 4:29 AM Age: 73 years old Clinical indication: Shortness of breath; Additional info: Dyspnea TECHNIQUE: Imaging protocol: Radiologic exam of the chest. Views: 1 view. COMPARISON: CR XR chest 2V* [id number] 09/21/2023 2:20 PM FINDINGS: Lungs: Atelectatic changes in the right lower lobe. Pleural spaces: Unremarkable. No pleural effusion. No pneumothorax. Heart/Mediastinum: Large hiatal hernia visible previously is not seen today. Bones/joints: Unremarkable. XR/XR chest 1V portable [id number] IMPRESSION: 1. No acute findings. 2. Mild atelectasis in right lower lobe.
--- NOTE | 2024-02-01 04:27 | W.ED.SOB ---
HPI - SOB/Dyspnea General: Chief Complaint: Shortness of Breath/Dyspnea Stated Complaint: sob Time Seen by Provider: 02/01/24 04:10 History of Present Illness: HPI Narrative: Patient presents to the ER with complaints of. She says these has gradually gotten worse since and she had dorsal oxygen yesterday. Patient has oxygen at home but only ordered on a as needed basis. Patient had pedal hernia surgery 5 weeks ago and has been less active than normal. Patient does see Dr. Xavier for combined asthma and COPD. Review of Systems General: Reports: 10 or more systems reviewed and unremarkable except in HPI and below PFSH ED PFSH: Medical History HTN (hypertension) Diagnosed in the nineteen nineties managed by medication and her primary care provider. She does not have a ornament maker hand. Chronic obstructive pulmonary disease Diagnosed with bronchitis in 2019 and was placed on inhalers Asthma-COPD overlap syndrome Obesity (BMI 30.0-34.9) Iron deficiency anemia Vitamin B12 deficiency Major depression GERD (gastroesophageal reflux disease) Controlled with medication-states that she has not had an EGD before. Neuropathy Incontinence of urine Arthritis of knee Muscle cramps at night Lumbar stenosis Compression fracture of lumbar vertebrae, non-traumatic Large hiatal hernia Surgical History Status post delivery 1985- delivery x1. Family History Father Hypertension Mother Breast cancer Diagnosed at age 50, of same at age 58 Denies family history of Colon cancer Ovarian cancer Diabetes Heart disease Hyperlipidemia Uterine cancer Thyroid disease Stroke Social History Smoking and tobacco/nicotine status: never used tobacco/nicotine Second hand smoke exposure: No Alcohol intake: never Substance/Drug Use: never Lives independently: Yes Household members: spouse Housing: House Marital status: Current occupational status: retired Pets and animals: Yes Do you think of yourself as: Straight/Heterosexual Current gender identity: Female Physical Exam Const: COMMON NORMALS: no acute distress, average body habitus, patient oriented x3, no limitations, healthy appearing, alert and well nourished HENMT: COMMON NORMALS: normocephalic, atraumatic, hearing grossly normal bilaterally, external ears normal, Normal external nose present, moist oral mucous membranes and oropharynx normal HEAD & SCALP: normocephalic and atraumatic NOSE: Normal external nose present EXTERNAL EAR: Yes external ears normal Neck/C-Spine: COMMON NORMALS: no JVD Chest: COMMONS NORMALS: normal inspection of the chest and normal palpation of entire chest wall Resp: COMMON NORMALS: normal respiratory effort, No retractions, No use of accessory muscles and clear to auscultation bilaterally AUSCULTATION: clear to auscultation bilaterally Cardio: COMMON NORMALS: no JVD, regular rate, regular rhythm, S1 normal heart sound present, S2 normal heart sound present, No gallops present (Cardio), No clicks present (Cardio), No murmurs present (Cardio) and No rub (Cardio) RATE: regular rate RHYTHM: regular rhythm HEART SOUNDS: S1 normal heart sound present and S2 normal heart sound present GI: COMMON NORMALS: Normal to inspection, nondistended, normoactive bowel sounds present, Soft to palpation, non-tender, No hepatosplenomegaly present and no masses PALPATION: Yes Soft to palpation and Yes No hepatosplenomegaly present Neuro: COMMON NORMALS: patient oriented x3 SENSORIUM/ORIENTATION: Yes alert Course Vital Signs: Vital signs: Vital Signs Temperature 97.9 F 02/01/24 06:25 Pulse Rate 71 02/01/24 06:25 Respiratory Rate 16 02/01/24 06:25 Blood Pressure 142/79 02/01/24 06:25 Pulse Oximetry 95 02/01/24 06:25 Oxygen Delivery Me thod Nasal Cannula 02/01/24 05:46 Oxygen Flow Rate 1 02/01/24 05:46 MDM - SOB/Dyspnea Medical Decision Making Patient has of workup included CBC CMP BNP chest x-ray and EKG. All of which was chronically stable for the patient. Urinalysis also performed which was negative. Patient was given 1.5 mg Solu-Medrol IV. And states stable on 1 L of oxygen per nasal cannula. Patient does have oxygen at home. Patient be discharged home Differential Diagnosis Likely acute exacerbation of chronic obstructive airways disease; Unlikely congestive heart failure, community acquired pneumonia, asthma with exacerbation or pulmonary embolism Medical Records I reviewed the patient's medical records. Lab Data I reviewed the patient's lab results. 02/01/24 04:18 04/02/24 04:18 Labs/Radiology: Radiology Impressions Chest X-Ray 02/01/24 04:25 IMPRESSION: 1. No acute findings. 2. Mild atelectasis in right lower lobe. Laboratory Results WBC 6.69 10^3/uL (3.29-11.43) 02/01/24 04:18 RBC 3.83 10^6/uL (3.85-5.65) L 02/01/24 04:18 Hgb 9.20 g/dL (11.27-16.99) L 02/01/24 04:18 Hct 31.0 % (36-47) L 02/01/24 04:18 MCV 80.9 fl (85-98) L 02/01/24 04:18 MCH 24.0 pg (27-33) L 02/01/24 04:18 MCHC 29.7 g/dL (30-55) L 02/01/24 04:18 RDW 19.3 % (12.1-15.1) H 02/01/24 04:18 Plt Count 497 10^3/cmm (157-399) H 02/01/24 04:18 MPV 9.0 fL (7.4-10.4) 02/01/24 04:18 Neut % (Auto) 56.6 % 02/01/24 04:18 Lymph % (Auto) 28.4 % 02/01/24 04:18 [place] % (Auto) 10.6 % 02/01/24 04:18 Eos % (Auto) 3.4 % 02/01/24 04:18 Baso % (Auto) 0.7 % 02/01/24 04:18 Neut # (Auto) 3.78 10^3/uL (1.8-7.7) 02/01/24 04:18 Lymph # (Auto) 1.9 10^3/uL (0.8-4.8) 02/01/24 04:18 [place] # (Auto) 0.7 10^3/uL (0.2-0.9) 02/01/24 04:18 Eos # (Auto) 0.2 10^3/uL (0.0-0.8) 02/01/24 04:18 Baso # (Auto) 0.1 10^3/uL (0.0-0.1) 02/01/24 04:18 Nucleated RBC % (auto) 0 % 02/01/24 04:18 Nucleated RBCs # 0.0 /100WBC 02/01/24 04:18 Sodium 141 mmol/L (136-145) 02/01/24 04:18 Potassium 4.1 mmol/L (3.5-5.1) 02/01/24 04:18 Chloride 108 mmol/L (98-107) H 02/01/24 04:18 Carbon Dioxide 22 mmol/L (22-29) 02/01/24 04:18 Anion Gap 15.1 (5-19) 02/01/24 04:18 BUN 15 mg/dL (8-23) 02/01/24 04:18 Creatinine 0.6 mg/dL (0.5-0.9) 02/01/24 04:18 GFR Calculation Not Reportable 02/01/24 04:18 Glucose 106 mg/dL (65-115) 02/01/24 04:18 Calculated Osmolality 293 mOsm/kg (285-295) 02/01/24 04:18 Calcium 9.8 mg/dL (8.5-10.5) 02/01/24 04:18 Total Bilirubin 0.2 mg/dL (0.15-1.2) 02/01/24 04:18 AST 34 U/L (0-32) H 02/01/24 04:18 ALT 35 U/L (0-33) H 02/01/24 04:18 Alkaline Phosphatase 94 U/L (35-105) 02/01/24 04:18 NT-Pro-B Natriuret Pep 85 pg/mL (0-125) 02/01/24 04:18 Total Protein 6.8 g/dL (6.6-8.7) 02/01/24 04:18 Albumin 4.1 g/dL (3.5-5.2) 02/01/24 04:18 Globulin 2.7 g/dL (1.3-4.6) 02/01/24 04:18 Urine Color Light yellow (Yellow) 02/01/24 05:14 Urine Appearance Clear (CLEAR) 02/01/24 05:14 Urine pH 5 (5-7) 02/01/24 05:14 Ur Specific [place] 1.015 (1.005-1.030) 02/01/24 05:14 Urine Protein Neg (Negative) 02/01/24 05:14 Urine Glucose (UA) Norm (Normal) 02/01/24 05:14 Urine Ketones Negative (Negative) 02/01/24 05:14 Urine Blood Neg (Negative) 02/01/24 05:14 Urine Nitrate Negative (Negative) 02/01/24 05:14 Urine Bilirubin Neg (Negative) 02/01/24 05:14 Urine Urobilinogen Neg mg/dL (Negative) 02/01/24 05:14 Ur Leukocyte Esterase Negative (Negative) 02/01/24 05:14 All radiology interpretation(s) finalized by discharge Discharge Plan Discharge Patient Disposition: Home Clinical Impression: Asthma-COPD overlap syndrome Condition: Stable Prescriptions: New prednisone 50 mg tablet 50 mg PO DAILY Qty: 5 0RF No Action Trelegy Ellipta 100-62.5-25 mcg blister with device 1 inh inhalation DAILY Qty: 60 6RF (DME) compressor, for nebulizer Device See Rx Instructions .Route Qty: 1 0RF Rx Instructions: As directed omeprazole 40 mg capsule,delayed release(DR/EC) 40 mg PO BID Qty: 60 3RF ipratropium-albuterol 0.5 mg-3 mg(2.5 mg base)/3 mL solution for nebulization 3 ml inhalation Q4H PRN (Reason: shortness of breath or wheezing) Qty: 90 6RF cyanocobalamin (vitamin B-12) 1,000 mcg/mL solution 1,000 mcg IM ONCE Qty: 1 2RF benzonatate 100 mg capsule 100 mg PO TID PRN (Reason: cough) Qty: 45 0RF albuterol sulfate 90 mcg/actuation HFA aerosol inhaler 2 puff inhalation Q4H PRN (Reason: shortness of breath or wheezing) Qty: 8.5 11RF albuterol sulfate 2.5 mg /3 mL (0.083 %) solution for nebulization 2.5 mg inhalation Q4H PRN (Reason: shortness of breath or wheezing) Qty: 75 3RF tramadol 50 mg tablet 50 mg PO TID PRN (Reason: Pain) amlodipine 10 mg tablet 10 mg PO DAILY losartan 25 mg tablet 25 mg PO DAILY acetaminophen 500 mg capsule 500 mg PO Q6H PRN (Reason: fever) Discharge Orders: Discharge ED (Routine); Ordered 02/01/24 Ordered By: Ken Valdivia Referrals: Serafin Yates DIRECTOR OF PATIENT FINANCIAL SERVICES [Primary Care Provider] - 1 week Patient Instructions: COPD (Chronic Obstructive Pulmonary Disease) (ED) Activity Restrictions/Additional Instructions: Please take all your medicine as directed. Please continue to use your oxygen as needed. Please follow-up with your die storage clerk or primary care physician within the next 7 days for further evaluation and treatment. Coding Level of Care Code ED Digital Archivist for Ev Freedman
[2024-02-01 04:30] LABS: Basophils # 0.1 10^3/uL (0.0-0.1); Basophils % 0.7 %; Eosinophils # 0.2 10^3/uL (0.0-0.8); Eosinophils % 3.4 %; Lymphocytes # 1.9 10^3/uL (0.8-4.8); Lymphocytes % 28.4 %; Mean Corpuscular HGB Conc 29.7 g/dL (30-55); Mean Corpuscular Volume 80.9 fl (85-98); Monocytes # 0.7 10^3/uL (0.2-0.9); Monocytes % 10.6 %; Neutrophils # 3.78 10^3/uL (1.8-7.7); Neutrophils % 56.6 %; Nucleated Red Blood Cells % 0 %; Platelet Count 497 10^3/cmm (157-399); Red Blood Count 3.83 10^6/uL (3.85-5.65); Red Cell Distribution Width 19.3 % (12.1-15.1); White Blood Count 6.69 10^3/uL (3.29-11.43)
[2024-02-01 04:59] LABS: Alanine Aminotransferase 35 U/L (0-33); Albumin Level 4.1 g/dL (3.5-5.2); Alkaline Phosphatase 94 U/L (35-105); Anion Gap 15.1 (5-19); Aspartate Amino Transferase 34 U/L (0-32); Blood Urea Nitrogen 15 mg/dL (8-23); Calcium 9.8 mg/dL (8.5-10.5); Carbon Dioxide 22 mmol/L (22-29); Chloride 108 mmol/L (98-107); Creatinine Clr Calc Pharmacy 69.4658; Globulin 2.7 g/dL (1.3-4.6); Glucose 106 mg/dL (65-115); Osmolality Calculated 293 mOsm/kg (285-295); Potassium 4.1 mmol/L (3.5-5.1); Sodium 141 mmol/L (136-145); Total Bilirubin 0.2 mg/dL (0.15-1.2); Total Protein 6.8 g/dL (6.6-8.7)
[2024-02-01 05:02] LABS: NT Pro B Type Natriuretic Pept 85 pg/mL (0-125)
[2024-02-01 05:05] VITALS: BP 142/94; PULSE 75; RESP 16; O2SAT 93
[2024-02-01 05:25] LABS: Add Urine Microscopic? NO; Charge for UA Resulting for Rev
[2024-02-01 05:36] LABS: Bilirubin Urine Neg (Negative); Blood Urine Neg (Negative); Glucose Urine UA Norm (Normal); Ketones Urine Negative (Negative); Leukocyte Esterase Urine Negative (Negative); Nitrate Urine Negative (Negative); Protein Urine Neg (Negative); Specific Gravity, Urine 1.015 (1.005-1.030); Urine Appearance Clear (CLEAR); Urine Color Light yellow (Yellow); Urobilinogen Urine Neg (Negative); pH Urine 5 (5-7)
[2024-02-01] MEDS: methylPREDNISolone sod succ 125 mg/2 mL INJ IVP (05:43)
[2024-02-01 05:46] VITALS: BP 142/79; PULSE 71; RESP 16; O2SAT 95
[2024-02-01 06:25] VITALS: BP 142/79; PULSE 71; RESP 16; TEMP 36.6; O2SAT 95
== END 2024-02-01 06:30 | disposition home or self-care (01) ==
PROVIDERS: Emergency Provider Emergency Medicine; PCP Clinical Nurse Specialist Adult Health
DX: J44.89 Other specified chronic obstructive pulmonary disease (principal); I10 Essential (primary) hypertension
CPT/HCPCS: 71045; 80053; 81003; 83880; 85025; 93005; 96374; 99285; J2919

== ENCOUNTER 2024-02-01 15:34 | Outpatient (CLI) | payer MEDICARE, OTHER, SELFPAY ==
--- NOTE | 2024-02-01 15:45 | MM_ITS ---
WS: [id number] BILATERAL 3D TOMOSYNTHESIS DIGITAL SCREENING MAMMOGRAPHY WITH CAD CLINICAL INFORMATION: SCREEN HISTORY: Screening mammogram. No current complaints. COMPARISON: 2021 TECHNIQUE: Bilateral CC and MLO views. FINDINGS: Scattered fibroglandular densities bilaterally. No suspicious focal mass, asymmetry, calcifications, or architectural distortion. No evidence of malignancy. IMPRESSION: MM/[place] [id number] BI-RADS: 1-Negative FOLLOW UP: 1 Year Follow-up Recommend return to annual screening mammography.
== END 2024-02-01 15:35 | disposition home or self-care (01) ==
LOC: RAD 15:34
PROVIDERS: PCP Clinical Nurse Specialist Adult Health; Visit Provider Clinical Nurse Specialist Adult Health
DX: Z12.31 Encounter for screening mammogram for malignant neoplasm of breast (principal)
CPT/HCPCS: 77063; 77067

== ENCOUNTER → 2024-02-08 10:57 | Outpatient (BNVA) | payer MEDICARE, OTHER, SELFPAY | PROVIDERS: PCP Clinical Nurse Specialist Adult Health; Visit Provider Clinical Nurse Specialist Adult Health | DX: E53.8 Deficiency of other specified B group vitamins (principal); J44.1 Chronic obstructive pulmonary disease with (acute) exacerbation | CPT/HCPCS: 82607 ==

== ENCOUNTER → 2024-03-23 14:11 | Outpatient (BNVA) | payer MEDICARE, OTHER, SELFPAY | PROVIDERS: PCP Clinical Nurse Specialist Adult Health; Visit Provider Internal Medicine Pulmonary Disease | DX: R06.02 Shortness of breath (principal); J40 Bronchitis, not specified as acute or chronic; J44.89 Other specified chronic obstructive pulmonary disease; Z91.199 Patient's noncompliance with other medical treatment and regimen due to unspecified reason | CPT/HCPCS: 99214 ==

== ENCOUNTER 2024-03-23 15:44 | Emergency (ER) | payer MEDICARE, OTHER, SELFPAY ==
[2024-03-23] VITALS (20 sets, daily range): BP systolic 126; BP diastolic 81; PULSE 65–89; RESP 15–25; TEMP 36.6; O2SAT 87–98; BMI 31.1
--- NOTE | 2024-03-23 15:48 | ECG_ITS ---
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 Measurements Intervals [place] Rate: 74 P: 44 AK: 151 QRS: -14 QRSD: 86 T: 15 QT: 389 QTc: 433 Interpretive Statements SINUS RHYTHM LOW QRS VOLTAGE IN PRECORDIAL LEADS [QRS DEFLECTION < 1.0 mV IN CHEST LEADS] POSSIBLE ANTERIOR MYOCARDIAL INFARCTION , OF INDETERMINATE AGE [30 ms Q WAVE IN V3/V4, OR R < 0.2 mV IN V4] Compared to ECG 02/01/2024 04:13:57 No significant changes Electronically Signed On 03-23-2024 17:15:16 CDT by Golden Navarrete M.D. [id number] f
--- NOTE | 2024-03-23 15:48 | XRR_ITS ---
PROCEDURE INFORMATION: Exam: XR Chest Exam date and time: 03/23/2024 4:07 PM Age: 74 years old Clinical indication: Shortness of breath; Additional info: SOB TECHNIQUE: Imaging protocol: Radiologic exam of the chest. Views: 1 view. COMPARISON: CR XR chest 1V portable [id number] 02/01/2024 4:29 AM FINDINGS: Lungs: Unremarkable. No consolidation or mass. Pleural spaces: Unremarkable. No pleural effusion. No pneumothorax. Heart/Mediastinum: Unremarkable. No cardiomegaly. Diaphragm: There is chronic elevation of the right hemidiaphragm. Bones/joints: Unremarkable. XR/XR chest 1V portable [id number] IMPRESSION: No acute findings.
--- NOTE | 2024-03-23 16:02 | ED_ITS ---
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 States she has had shortness of breath for quite some time she thought it could be hiatal hernia she had repaired in December and states since then she has had worsening dyspnea she had seen her brim stitcher today and sent her here due to worsening exertional dyspnea patient denies any pain denies any fevers. Associated symptoms: Deny abdominal pain, chest pain, fever(s), nausea or vomiting Review of Systems 2 Const: Denies: fever(s), chills, body aches or change in appetite Eyes: Denies: blurry vision or eye discomfort ENMT: Denies: throat pain or dental pain Card: Denies: chest pain Resp: Reports: dyspnea GI: Denies: abdominal pain, nausea, vomiting or diarrhea Musc: Denies: neck pain or back pain Skin/Breast: Denies: rash Neuro: Denies: headache(s) PFSH ED 2 PFSH: Medical History HTN (hypertension) Diagnosed in the nineteen nineties managed by medication and her primary care provider. 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 Chronic obstructive pulmonary disease Diagnosed with bronchitis in 2019 and was placed on inhalers Asthma-COPD overlap syndrome Obesity (BMI 30.0-34.9) Iron deficiency anemia Vitamin B12 deficiency Major depression GERD (gastroesophageal reflux disease) Controlled with medication-states that she has not had an EGD before. Neuropathy Incontinence of urine Arthritis of knee Muscle cramps at night Lumbar stenosis Compression fracture of lumbar vertebrae, non-traumatic Large hiatal hernia Surgical History Status post delivery 1985- delivery x1. Family History Father Hypertension Mother Breast cancer Diagnosed at age 50, of same at age 58 Denies family history of Colon cancer Ovarian cancer Diabetes Heart disease Hyperlipidemia Uterine cancer Thyroid disease Stroke Social History (Reviewed 03/23/24 @ 14:26 by DAVID Lawrence Smoking and tobacco/nicotine status: never used tobacco/nicotine Second hand smoke exposure: No Alcohol intake: never Substance/Drug Use: never Lives independently: Yes Household members: spouse Housing: House Marital status: Current occupational status: retired Pets and animals: Yes Do you think of yourself as: Straight/Heterosexual Current gender identity: Female Physical Exam 2 Const: COMMON NORMALS: patient oriented x3 HENMT: COMMON NORMALS: normocephalic and atraumatic HEAD & SCALP: n ormocephalic and atraumatic Neck/C-Spine: COMMON NORMALS: full ROM and supple Chest: COMMONS NORMALS: normal inspection of the chest and normal palpation of entire chest wall Resp: COMMON NORMALS: normal respiratory effort, No retractions, No use of accessory muscles and clear to auscultation bilaterally AUSCULTATION: clear to auscultation bilaterally Cardio: COMMON NORMALS: regular rate, regular rhythm and No murmurs present (Cardio) RATE: regular rate RHYTHM: regular rhythm GI: COMMON NORMALS: Normal to inspection, nondistended, normoactive bowel sounds present, Soft to palpation, non-tender and no masses PALPATION: Yes Soft to palpation Extremity: COMMON NORMALS: normal to inspection and full ROM Neuro: COMMON NORMALS: patient oriented x3, moves all extremities and no focal motor deficits Psych: COMMON NORMALS: mental status grossly normal, Normal thought process present and cooperative THOUGHT PROCESS: Normal thought process present Skin: COMMON NORMALS: no rashes or lesions noted and no wounds GENERAL SKIN EXAM: no rashes or lesions noted Course 2 Vital Signs: Vital signs: Vital Signs Temperature 97.9 F 03/23/24 15:46 Pulse Rate 76 03/23/24 17:00 Respiratory Rate 22 H 03/23/24 17:00 Blood Pressure 126/81 03/23/24 15:46 Pulse Oximetry 95 03/23/24 17:00 Oxygen Delivery Me thod Room Air 03/23/24 15:46 MDM - SOB/Dyspnea Medical Decision Making Patient presents here with dyspnea likely from her COPD she has been well- appearing here with no hypoxia here CTA is normal I did speak to her brim stitcher Dr. Xavier we will start her on steroids she is follow-up with him return if worsening she understands agrees to plan. Medical Records I reviewed the patient's medical records. Lab Data I reviewed the patient's lab results. 03/23/24 16:03 03/23/24 16:03 Labs/Radiology: Radiology Impressions Chest X-Ray 03/23/24 15:48 IMPRESSION: No acute findings. Chest CTA 03/23/24 16:54 IMPRESSION: 1. No acute findings. 2. Stable cardiomegaly Laboratory Results WBC 8.57 10^3/uL (3.29-11.43) 03/23/24 16:03 RBC 4.38 10^6/uL (3.85-5.65) 03/23/24 16:03 Hgb 10.70 g/dL (11.27-16.99) L 03/23/24 16:03 Hct 36.3 % (36-47) 03/23/24 16:03 MCV 82.9 fl (85-98) L 03/23/24 16:03 MCH 24.4 pg (27-33) L 03/23/24 16:03 MCHC 29.5 g/dL (30-55) L 03/23/24 16:03 RDW 19.3 % (12.1-15.1) H 03/23/24 16:03 Plt Count 476 10^3/cmm (157-399) H 03/23/24 16:03 MPV 9.2 fL (7.4-10.4) 03/23/24 16:03 Neut % (Auto) 62.7 % 03/23/24 16:03 Lymph % (Auto) 21.7 % 03/23/24 16:03 [place] % (Auto) 9.7 % 03/23/24 16:03 Eos % (Auto) 5.0 % 03/23/24 16:03 Baso % (Auto) 0.7 % 03/23/24 16:03 Neut # (Auto) 5.37 10^3/uL (1.8-7.7) 03/23/24 16:03 Lymph # (Auto) 1.9 10^3/uL (0.8-4.8) 03/23/24 16:03 [place] # (Auto) 0.8 10^3/uL (0.2-0.9) 03/23/24 16:03 Eos # (Auto) 0.4 10^3/uL (0.0-0.8) 03/23/24 16:03 Baso # (Auto) 0.1 10^3/uL (0.0-0.1) 03/23/24 16:03 Nucleated RBC % (auto) 0 % 03/23/24 16:03 Nucleated RBCs # 0.0 /100WBC 03/23/24 16:03 D-Dimer 0.97 ug/mLFEU (0-0.59) H 03/23/24 16:03 Sodium 138 mmol/L (136-145) 03/23/24 16:03 Potassium 4.0 mmol/L (3.5-5.1) 03/23/24 16:03 Chloride 105 mmol/L (98-107) 03/23/24 16:03 Carbon Dioxide 20 mmol/L (22-29) L 03/23/24 16:03 Anion Gap 17.0 (5-19) 03/23/24 16:03 BUN 12 mg/dL (8-23) 03/23/24 16:03 Creatinine 0.7 mg/dL (0.5-0.9) 03/23/24 16:03 GFR Calculation Not Reportable 03/23/24 16:03 Glucose 87 mg/dL (65-115) 03/23/24 16:03 Calculated Osmolality 285 mOsm/kg (285-295) 03/23/24 16:03 Calcium 10.1 mg/dL (8.5-10.5) 03/23/24 16:03 Total Bilirubin 0.3 mg/dL (0.15-1.2) 03/23/24 16:03 AST 39 U/L (0-32) H 03/23/24 16:03 ALT 35 U/L (0-33) H 03/23/24 16:03 Alkaline Phosphatase 103 U/L (35-105) 03/23/24 16:03 NT-Pro-B Natriuret Pep 231 pg/mL (0-450) 03/23/24 16:03 Total Protein 7.2 g/dL (6.6-8.7) 03/23/24 16:03 Albumin 4.2 g/dL (3.5-5.2) 03/23/24 16:03 Globulin 3.0 g/dL (1.3-4.6) 03/23/24 16:03 All radiology interpretation(s) finalized by discharge Discharge Plan Discharge Patient Disposition: Home Clinical Impression: Chronic obstructive pulmonary disease Condition: Stable Prescriptions: New prednisone 50 mg tablet 50 mg PO DAILY Qty: 5 0RF No Action (DME) compressor, for nebulizer Device See Rx Instructions .Route Qty: 1 0RF Rx Instructions: As directed ondansetron HCl 4 mg tablet 4 mg PO Q8H PRN (Reason: nausea and vomiting) Qty: 30 0RF prednisone 10 mg tablet 10 mg PO DAILY Qty: 11 0RF Rx Instructions: 2 tabs x 10 mg = 20 mg x 3 days 1 tab x 10 mg = 10 mg x 5 days omeprazole 40 mg capsule,delayed release(DR/EC) 40 mg PO BID Qty: 60 3RF ipratropium-albuterol 0.5 mg-3 mg(2.5 mg base)/3 mL solution for nebulization 3 ml inhalation Q4H PRN (Reason: shortness of breath or wheezing) Qty: 90 6RF cyanocobalamin (vitamin B-12) 1,000 mcg/mL solution 1,000 mcg IM ONCE Qty: 1 2RF albuterol sulfate 90 mcg/actuation HFA aerosol inhaler 2 puff inhalation Q4H PRN (Reason: shortness of breath or wheezing) Qty: 8.5 11RF albuterol sulfate 2.5 mg /3 mL (0.083 %) solution for nebulization 2.5 mg inhalation Q4H PRN (Reason: shortness of breath or wheezing) Qty: 75 3RF uasjtuextw-dnjkhltd-xeqojsimny 160-9-4.8 mcg/actuation HFA aerosol inhaler 2 inh inhalation BID Qty: 10.7 6RF tramadol 50 mg tablet 50 mg PO TID PRN (Reason: Pain) amlodipine 10 mg tablet 10 mg PO DAILY losartan 25 mg tablet 25 mg PO DAILY acetaminophen 500 mg capsule 500 mg PO Q6H PRN (Reason: fever) Discharge Orders: Discharge ED (Routine); Ordered 03/23/24 Ordered By: Az Huff Referrals: Serafin Yates, [employer] [Primary Care Provider] - Discharge Diet: Advance as tolerated Discharge Activity: Resume usual activity Patient Instructions: COPD (Chronic Obstructive Pulmonary Disease) (ED) Coding Level of Care Code ED Batch Freezer Operator for Ev Freedman
[2024-03-23 16:35] LABS: Basophils # 0.1 10^3/uL (0.0-0.1); Basophils % 0.7 %; Eosinophils # 0.4 10^3/uL (0.0-0.8); Hematocrit 36.3 % (36-47); Lymphocytes # 1.9 10^3/uL (0.8-4.8); Lymphocytes % 21.7 %; Mean Corpuscular HGB Conc 29.5 g/dL (30-55); Mean Corpuscular Hemoglobin 24.4 pg (27-33); Mean Corpuscular Volume 82.9 fl (85-98); Mean Platelet Volume 9.2 fL (7.4-10.4); Monocytes # 0.8 10^3/uL (0.2-0.9); Monocytes % 9.7 %; Neutrophils # 5.37 10^3/uL (1.8-7.7); Neutrophils % 62.7 %; Nucleated Red Blood Cells % 0 %; Platelet Count 476 10^3/cmm (157-399); Red Blood Count 4.38 10^6/uL (3.85-5.65); Red Cell Distribution Width 19.3 % (12.1-15.1); White Blood Count 8.57 10^3/uL (3.29-11.43)
[2024-03-23 16:49] LABS: D Dimer 0.97 ug/mLFEU (0-0.59)
--- NOTE | 2024-03-23 16:54 | CTR_ITS ---
PROCEDURE INFORMATION: Exam: CTA Chest With Contrast Exam date and time: 03/23/2024 5:24 PM Age: 74 years old Clinical indication: Abnormal findings; Abnormal diagnostic tests; Elevated d-dimer; Dyspnea; Additional info: SOB TECHNIQUE: Imaging protocol: Computed tomographic angiography of the chest with contrast. Exam focused on the arteries. 3D rendering (Not supervised by radiologist): MIP and/or 3D reconstructed images were created by the technologist. Radiation optimization: All CT scans at this facility use at least one of these dose optimization techniques: automated exposure control; mA and/or kV adjustment per patient size (includes targeted exams where dose is matched to clinical indication); or iterative reconstruction. Contrast material: OMNI 350; Contrast volume: 85 ml; Contrast route: INTRAVENOUS (IV); COMPARISON: CT angio chest PE protcl [id number] 04/17/2020 12:07 PM RADIATION DOSE METRICS: Total DLP (mGy-cm): 483.22 FINDINGS: Pulmonary arteries: Normal. No pulmonary emboli. Aorta: Unremarkable. No aortic aneurysm. No aortic dissection. Lungs: There is bibasilar atelectasis. I see no lung mass or infiltrate. Both lungs demonstrate chronic ground-glass density diffusely. Pleural spaces: Unremarkable. No pneumothorax. No pleural effusion. Heart: Moderate cardiomegaly is noted. Lymph nodes: Unremarkable. No enlarged lymph nodes. Diaphragm: There is chronic elevation of the right hemidiaphragm. Bones/joints: Unremarkable. No acute fracture. Soft tissues: Unremarkable. CT/CT angio chest PE protcl [id number] IMPRESSION: 1. No acute findings. 2. Stable cardiomegaly
[2024-03-23 17:09] LABS: Alanine Aminotransferase 35 U/L (0-33); Albumin Level 4.2 g/dL (3.5-5.2); Alkaline Phosphatase 103 U/L (35-105); Aspartate Amino Transferase 39 U/L (0-32); Blood Urea Nitrogen 12 mg/dL (8-23); Calcium 10.1 mg/dL (8.5-10.5); Carbon Dioxide 20 mmol/L (22-29); Chloride 105 mmol/L (98-107); Creatinine Clr Calc Pharmacy 67.7169; Glucose 87 mg/dL (65-115); NT Pro B Type Natriuretic Pept 231 pg/mL (0-450); Osmolality Calculated 285 mOsm/kg (285-295); Sodium 138 mmol/L (136-145); Total Bilirubin 0.3 mg/dL (0.15-1.2); Total Protein 7.2 g/dL (6.6-8.7)
[2024-03-23] MEDS: iohexol 350 mg/mL 500 mL Btl (per mL) IV (17:32)
== END 2024-03-23 19:01 | disposition home or self-care (01) ==
PROVIDERS: Emergency Provider Emergency Medicine; PCP Clinical Nurse Specialist Adult Health
DX: J44.9 Chronic obstructive pulmonary disease, unspecified (principal); I10 Essential (primary) hypertension
CPT/HCPCS: 71045; 71275; 80053; 83880; 85025; 85378; 93005; 99285; Q9967

== ENCOUNTER → 2024-04-07 11:00 | Outpatient (BNVA) | payer MEDICARE, OTHER, SELFPAY | PROVIDERS: PCP Clinical Nurse Specialist Adult Health; Visit Provider Internal Medicine Pulmonary Disease | DX: J44.89 Other specified chronic obstructive pulmonary disease (principal); M79.89 Other specified soft tissue disorders; J40 Bronchitis, not specified as acute or chronic; R06.02 Shortness of breath; M79.605 Pain in left leg | CPT/HCPCS: 99214 ==

== ENCOUNTER 2024-04-12 06:57 | Outpatient (CLI) | payer MEDICARE, SELFPAY ==
--- NOTE | 2024-04-12 07:15 | USCV_ITS ---
Jane Zheng Age: 74 Gender: F : 1950 Exam Date: 04/12/2024 07:06 Ordering Phys: Isauro Viera MD Technologist: JOVI [place]am Location[place] [facility] [place] [facility] [place] Indication: Foot swelling and heel pain HISTORY: Lower extremity swelling. PROCEDURES: Venous duplex imaging was performed in only the left lower extremity. The following venous structures were evaluated: common femoral vein, profunda vein, proximal portion of the greater saphenous vein, superficial femoral vein, and the popliteal vein. In addition, the posterior tibial and peroneal trunk were evaluated. Serial compression, augmentation maneuvers, and spectral Doppler flow evaluation were performed. FINDINGS: No evidence of DVT seen in any vessel visualized at this time. CONCLUSIONS No evidence of left lower extremity DVT. Hemal Wade MD (Electronically Signed) Final Date: 12 April 2024 09:09 S
== END 2024-04-12 06:58 | disposition home or self-care (01) ==
PROVIDERS: PCP Clinical Nurse Specialist Adult Health; Visit Provider Internal Medicine Pulmonary Disease
DX: R06.02 Shortness of breath (principal); M79.605 Pain in left leg
CPT/HCPCS: 85378; 93971

== ENCOUNTER → 2024-12-12 09:58 | Outpatient (BNVA) | payer MEDICARE, OTHER, SELFPAY | PROVIDERS: PCP Family Medicine; Visit Provider Emergency Medicine | DX: J44.9 Chronic obstructive pulmonary disease, unspecified (principal); J44.1 Chronic obstructive pulmonary disease with (acute) exacerbation; R06.02 Shortness of breath; J84.10 Pulmonary fibrosis, unspecified; R93.5 Abnormal findings on diagnostic imaging of other abdominal regions, including retroperitoneum; M48.54XD Collapsed vertebra, not elsewhere classified, thoracic region, subsequent encounter for fracture with routine healing; X58.XXXD Exposure to other specified factors, subsequent encounter | CPT/HCPCS: 71046; 83880 ==